=== PATIENT | female | born 1950 | race Caucasian/White ===

== ENCOUNTER → 2020-02-23 09:25 | Outpatient (CLI) | payer MEDICARE ==
[2014-02-23 14:15] VITALS: BMI 21.3
--- NOTE | ~2020-02-23 | EC ---
PATIENT:HANNA PIERCE DATE OF SERVICE: 02/23/20 SEX: F MEDICAL RECORD: [id number] DATE OF : 54 LOCATION:D.FORMERLY [facility] [place] AGE OF PATIENT: 70 ADMISSION DATE: 02/23/20 REFERRING PHYSICIAN: INTERPRETING PHYSICIAN: CHANG MACEDO MD ECHOCARDIOGRAM REPORT ECHO CHARGES 4 ECHO COMPLETE Date: 02/23/20 CLINICAL DIAGNOSIS: HTN/ANGINA/ASSESS EF ECHOCARDIOGRAPHIC MEASUREMENTS (adult normal given) AC root (d.<3.7cm) 2.9 cm LV Septum d (<1.2 cm> 1.0 cm Valve Excursion 1.0 cm LV Septum (systole) 1.1 cm Left Atria (s.<4.0cm> 3.3 cm LVPW d(<1.2cm) 1.0 cm RV (d.<2.3cm) 3.6 cm LVPW (sytole) 1.2 cm LV diastole(<5.6CM) 4.5 cm MV E-F(>70mm/sec) cm LV systole 2.8 cm LVOT Diameter 1.9 cm MV exc.(>10mm) 1.5 cm Est.ejection fraction (50-75%) % DOPPLER: LVIT cm/sec A 103.0cm/sec E 94.0 cm/sec LA cm/sec RVSP 43 mmHg LVOT 106 cm/sec AOP1/2T m/s Asc. Ao 151 cm/sec RVOT 68 cm/sec RA cm/sec PA 125 cm/sec AV Gradient Peak 9.14 mmHg AV Mean 4.68 mmHg AV Area 1.8 cm MV Gradient Peak 4.51 mmHg MV Mean 2.05 mmHg MV Area cm COMMENTS: Sports Journalist: 2 TIARRA SCHRADER Paper Box Cutter: 3 Dr. Lowe TAPE# PACS Pericardial Effusion N DATE OF SERVICE: Adequate 2D, color flow imaging, spectral Doppler, and M-Mode. No LVH. LV internal dimension is normal. Wall motion is normal. EF is greater than or equal to 55%. Aortic valve is tricuspid. No evidence of stenosis by Doppler interrogation. Left atrium is normal at 3.6 cm. Mitral valve shows no prolapse. Mild MR. Right-sided chambers are grossly normal. [id number] TR. ECHOCARDIOGRAM REPORT [id number] HANNA PIERCE TRANSINT:[id number] Voice Confirmation ID: [id number] DOCUMENT ID: [id number] CHANG MACEDO MD CC: [id number] DICTATION DATE: 02/24/20 1331 NURSING HOME MANAGER: 02/24/20 2239 DEP CLI 02/23/20 [place] [id number]
[~2020-02-23 09:25] MED LIST: AZOR 5-40 MG TA1 TAB PO; CARAFATE1 G; CHLORTHALIDONE25 MG PO; DURAGESIC1 PATCH .7 TD; FERROUS SULFAT325 MG PO; FLINTSTONE1 TAB.CHEW PO; HYDRALAZINE HCL50 MG PO; KLONOPIN0.5 MG PO; LEVAQUIN500 MG PO; LEVAQUIN750 MG PO; MUCINEX DM ER1 EAC1 PO; MYSOLINE 50 MG50 MG PO; NEURONTIN600 MG PO; PEPCID20 MG PO; PHENERGAN25 M1 PO; TESSALON PERLE100 MG PO; TRANDATE200 MG PO; TRAZODONE HCL50 MG PO; VALIUM10 MG PO; ZOCOR40 MG PO
== END | disposition home or self-care (01) ==
LOC: D.HCCECHO 09:25
PROVIDERS: ATTEND Internal Medicine Cardiovascular Disease
DX: I20.9 Angina pectoris, unspecified (principal); I10 Essential (primary) hypertension

== ENCOUNTER 2020-03-09 10:55 | Day surgery (SDC) | payer MEDICARE ==
[~2020-03-09] VITALS: Ht 165.1 cm; Wt 46.2 kg
--- NOTE | ~2020-03-09 | HEMODYNAMI ---
PATIENT:HANNA PIERCE MEDICAL RECORD: [id number] : 54 LOCATION:DTRU ADMISSION DATE: 03/09/20 Generatedon:03/09/202013:32 Patient name: HANNA PIERCE Patient #: [id number] SSN: : 1950 Date of study: 03/09/2020 Page: Of Hemodynamic Procedure Report Patient Data Patient Demographics First Name: HANNA Gender: Female Last Name: STAN : 1950 [facility] Initial: A Age: 70 year(s) Patient #: [id number] Race: Unknown Additional ID: [id number] Contact details [address]: [address] [place] [address] State: [place] City: [place] Zip code: [address] Admission Admission Data Admission Date: 03/09/2020 Admission Time: 10:55 Arrival Date: 03/09/2020 Arrival Time: 0:00 Admit Source: Other Insurance Payor: Medicare, Medicaid [facility] #: [id number] Height (in.): 65 BSA: 1.48 (m2) Height (cm.): 165.1 BMI: 16.88 (kg/m2) Weight (lbs.): 101.41 Weight (kg.): 46 Lab Results Lab Result Date: 03/09/2020 Lab Result Time: 0:00 Biochemistry Name Units Result Min Max BUN mg/dl 6 -*(----)-- 7 18 Creatinine mg/dl 0.8 --(-*--)-- 0.6 1.3 eGFR ml/min 75 *-(----)-- 90 120 NONAFRICAN CBC Name Units Result Min Max Hemoglobin g/dl 13.9 --(*---)-- 13.5 17.5 Procedure Procedure Types Cath Procedure Diagnostic Procedure LHC LHC w/Coronaries FFR/IVUS FFR Initial Sedation Charges Moderate Sedation up to 15 minutes Procedure Description Procedure Date Procedure Date: 03/09/2020 Procedure Start Time: 13:11 Procedure End Time: 13:28 Procedure Staff Name Function Moises Mejias MD Performing Physician Brunilda Zepeda RN Nurse Funmi Chin RT Monitor Teodoro White RT Scrub Procedure Data Cath Procedure Fluoroscopy Diagnostic fluoroscopy Total fluoroscopy Time: 2.8 time: 2.8 min min Diagnostic fluoroscopy Total fluoroscopy dose: 254 dose: 254 mGy mGy Contrast Material Contrast Material Type Amount (ml) Isovue 300 71 Entry Location Entry Primary Successful Side Size Upsize Upsize Entry Closure Succes sful Closure Location (Fr) 1 (Fr) 2 (Fr) Remarks Device Remarks Femoral Right 5 Fr 6 Fr artery Short Estimated blood loss: 10 ml Diagnostic catheters Device Type Used For End Catheter Placement MULTIPACK JL 4.0 5Fr Procedure catheter MULTIPACK 3DRC 5Fr Procedure catheter MULTIPACK Pigtail 5 Fr Ventriculography catheter Procedure Complications No complications Procedure Medications Medication Administration Route Dosage Oxygen etCO2 Nasal cannula 2 l/min Lidocaine 2% added to field 20 Heparin Flush Bag added to field 2 bags (1000units/500ml NS) 0.9% NaCl I.V. 100 ml/hr Versed I.V. 1 mg Fentanyl I.V. 50 mcg Versed I.V. 1 mg Fentanyl I.V. 50 mcg Heparin Bolus I.V. 2000 units Fentanyl I.V. 50 mcg Hemodynamics Rest BSA: 1.48 (m2) O2 Consumption: Estimated: 142.64 (ml/min) O2 Consumption indexed : Estimated:96.38 (ml/min/m) Heart Rate: 80 (bpm) Pressure Samples Time Site Value (mmHg) Purpose Heart Use Rate(bpm) 13:15 LV 74/10,11 Snapshot 74 13:15 LV 93/42,15 Snapshot 101 Gradients Valve Time Site Site Mean SEP/DFP Peak To Heart Use 1 2 (mmHg) (sec/min) Peak Rate (mmHg) (bpm) Aortic 13:16 LV AO 82 Snapshots Pre Cath Intra NCS Post Cath Vital Signs Time Heart Resp SPO2 etCO2 NIBP (mmHg) Rhythm Pain Sedation Rate (ipm) (%) (mmHg) Status Level (bpm) 13:05:54 79 17 100 41.8 148/72(123) NSR 0 (11) 10(A) , No pain 13:09:35 80 17 100 36.6 137/78(107) NSR 0 (11) 10(A) , No pain 13:13:19 75 17 99 27.6 114/63(93) NSR 0 (11) 10(A) , No pain 13:17:00 78 17 97 50.7 112/68(93) NSR 0 (11) 10(A) , No pain 13:20:43 79 16 94 45.5 104/58(79) NSR 0 (11) 10(A) , No pain 13:24:25 80 16 94 45.5 104/62(80) NSR 0 (11) 10(A) , No pain 13:28:06 84 16 95 50 103/62(81) NSR 0 (11) 10(A) , No pain Medications Time Medication Route Dose Verified Delivered Reason Notes Effectiveness by by 13:05:30 Oxygen etCO2 2 Moises Brunilda used for Nasal l/min St Stevie Zepeda RN procedure cannula 13:05:37 Lidocaine 2% added 20ml Moises Moises for local to vial [facility] anesthetic field MD HUA 13:05:43 Heparin Flush added 2 Moises Moises used for Bag to bags [facility] procedure (1000units/500ml field MD HUA NS) 13:05:52 0.9% NaCl I.V. 100 Moises Worley Per physician ml/hr St Stevie Zepeda RN, MD 13:11:59 Versed I.V. 1 mg Moises Worley for sedation St Stevie Zepeda RN, MD 13:12:03 Fentanyl I.V. 50 Moises Holcombie for sedation zachary Morrissey RN, MD 13:16:55 Versed I.V. 1 mg Moises Wroley for sedation St Stevie Zepeda RN, MD 13:17:03 Fentanyl I.V. 50 Moises Worley for sedation zachary Morrissey RN, MD 13:17:17 Heparin Bolus I.V. [address] for units [address] Stevie urbina MD 13:20:17 Fentanyl I.V. 50 Moises Worley for sedation zachary Morrissey RN, MD Procedure Log Time Note 13:05:21 Vital chart was started 13:05:22 Arrival Date: 03/09/2020 12:00:00 AM 13:05:23 Admit Source: Other 13:05:30 Oxygen 2 l/min etCO2 Nasal cannula was administered by Brunilda Zepeda RN; used for procedure; Verbal order read back and verified. 13:05:33 Insurance Payor : Medicare, Medicaid 13:05:37 Lidocaine 2% 20ml vial added to field was administered by Moises Mejias MD; for local anesthetic; Verbal order read back and verified. 13:05:43 Heparin Flush Bag (1000units/500ml NS) 2 bags added to field was administered by Moises Mejias MD; used for procedure; Verbal order read back and verified. 13:05:52 0.9% NaCl 100 ml/hr I.V. was administered by Brunilda Zepeda RN; Per physician; Verbal order read back and verified. 13:05:53 Patient Height : 65 inches 13:06:36 Patient Weight : 101.41 lbs 13:07:12 Lab Result : BUN 6 mg/dl 13:07:12 Lab Result : Hemoglobin 13.9 g/dl 13:07:12 Lab Result : eGFR NONAFRICAN 75 ml/min 13:07:12 Lab Result : Creatinine 0.8 mg/dl 13:07:57 Procedure Status Elective Heart Cath (OP). 13:08:00 Brunilda Zepeda RN sent for patient. Start room use. 13:08:16 Time tracking: Regular hours (M-F 7:00 - 5:00) 13:08:20 Plan of Care:Hemodynamics will remain stable., Cardiac rhythm will remain stable., Comfort level will be maintained., Respiratory function will remain adequate., Patient/ family verbilizes understanding of procedure., Procedure tolerated without complication., Recovers from procedure without complications.. 13:08:26 Patient received from Pre/Post Procedure Room to [facility] 2 Alert and oriented. Tansferred to table in Supine position. 13:08:28 Warm blankets applied, and josr hugger turned on for patient comfort. 13:08:28 Correct patient and procedure confirmed by team. 13:08:29 ECG and BP/O2 sat monitors applied to patient. 13:08:30 Baseline sample Acquired. 13:08:36 Rhythm: sinus rhythm 13:08:37 Full Disclosure recording started 13:08:59 H&P Date Dictated: 02/23/2020 Within 30 days and on chart., H&P Addendum completed by physician on day of procedure. (MUST COMPLETE FOR ALL OUTPATIENTS). 13:09:01 Pre-procedure instructions explained to patient. 13:09:04 Family in patients room. 13:09:06 Patient NPO since Midnight. 13:09:26 Is the patient allergic to Iodine/contrast media? No. 13:09:29 Was the patient premedicated? Yes 13:09:30 Is patient on blood thinner?No 13:09:36 Patient diabetic? No. 13:09:47 Snore? No 13:09:49 Sleep apnea? No 13:09:55 Airway obstruction? Yes COPD 13:10:01 Dentures? No ? 13:10:09 Patient pain scale 0/10 ?. 13:10:15 IV patent on arrival in left forearm with 0.9% NaCl at [facility]. 13:10:19 Lab results completed and on chart. 13:10:51 Stress Test: yes; abnormal apical 13:10:56 Right groin area was prepped with chlora-prep and draped in sterile fashion 13:10:56 Alarms reviewed by R. N. 13:10:57 Sharps counted by scrub and verified by R.N. 13:10:58 Physician arrived 13:10:59 --------ALL STOP TIME OUT------ 13:11:07 Final Timeout: patient, procedure, and site verified with staff and physician. All members of the team are in agreement. 13:11:10 Right groin site verified by team. 13:11:14 Fire Safety Assessment: A--An alcohol-based skin anteseptic being used preoperatively., C--Open oxygen or nitrous oxide is being used., D--An ESU, laser, or fiber-optic light is being used. 13:11:17 Physical assessment completed. ASA score P 2 - A patient with mild systemic disease as per Moises Mejias MD. 13:11:20 2) 60-89 Mildly reduced kidney function, and other findings (as for stage 1) point to kidney disease. 13:11:23 Maximum allowable contrast dose (3.7 X eGFR X 0.75)208 ml. 13:11:28 Sedation plan: IV Moderate Sedation Medication:Versed, Fentanyl 13:11:34 Use device set Radial Dx or PCI 13:11:37 Procedure started. 13:11:49 Local anesthetic to right femoral artery with Lidocaine 2% by Moises Mejias MD.INITIAL ACCESS ONLY 13:11:58 A 5 Fr sheath was inserted into the Right Femoral artery 13:11:59 Versed 1 mg I.V. was administered by Brunilda Zepeda RN; for sedation; Verbal order read back and verified. 13:12:02 ACIST Syringe (91974) opened to sterile field. 13:12:02 Medline Cath Pack ([id number]) opened to sterile field. 13:12:03 Fentanyl 50 mcg I.V. was administered by Brunilda Zepeda RN; for sedation; Verbal order read back and verified. 13:12:03 Bag Decanter (2002S) opened to sterile field. 13:12:03 ACIST Hand Control (56932) opened to sterile field. 13:12:04 ACIST Manifold (08724) opened to sterile field. 13:12:04 Tegaderm 4 x 4 (1626W) opened to sterile field. 13:12:08 EMERALD Guide Wire (472-096) opened to sterile field. 13:12:40 DIAGNOSTIC Multipack 5Fr catheter set (LH7304) opened to sterile field. 13:13:41 A MULTIPACK JL 4.0 5Fr catheter was advanced over the wire and used for Procedure. 13:13:46 LCA angiography performed. 13:13:51 Catheter removed. 13:14:10 A MULTIPACK 3DRC 5Fr catheter was advanced over the wire and used for Procedure. 13:14:53 RCA angiography performed. 13:14:58 Catheter removed. 13:15:05 A MULTIPACK Pigtail 5 Fr catheter was advanced over the wire and used for Ventriculography. 13:15:22 LV gram done using CURIEL 13:16:21 LV hemodynamics recorded. 13:16:32 EF : 55 % 13:16:55 Versed 1 mg I.V. was administered by Brunilda Zepeda RN; for sedation; Verbal order read back and verified. 13:16:59 GUIDE 6FR JR 4.0 catheter ([id number]) opened to sterile field. 13:17:00 [place] IVUS Catheter (79698X) opened to sterile field. 13:17:01 INFLATOR Merit BasixCompak (AR0610) opened to sterile field. 13:17:02 SHEATH 6FR Pillow (MFS415) opened to sterile field. 13:17:03 Fentanyl 50 mcg I.V. was administered by Brunilda Zepeda RN; for sedation; Verbal order read back and verified. 13:17:17 Heparin Bolus 2000 units I.V. was administered by Brunilda Zepeda RN; for anticoagulation; Verbal order read back and verified. 13:17:17 Catheter removed. 13:17:19 Proceeding to intervention. 13:18:54 Sheath upsized to a 6 Fr Short. 13:19:01 6 Fr JR4 guide catheter was inserted over the wire 13:19:06 IFR wire advanced. 13:20:17 Fentanyl 50 mcg I.V. was administered by Brunilda Zepeda RN; for sedation; Verbal order read back and verified. 13:20:38 FFR/IFR wire advanced. 13:23:03 Wire advanced across lesion. 13:23:50 mRCA lesion measured at .94 with IFR 13:24:01 Procedure ended.(Physican Out) 13:25:50 Fluoroscopy time 02.80 minutes. 13:26:09 Fluoroscopy dose: 254 mGy 13:26:09 Flurop Dose total: 254 13:26:15 Dose Area Product 40803 mGy/cm. 13:26:19 Contrast amount:Isovue 300 71ml. 13:26:21 Maximum allowable dose exceeded? No. 13:26:23 Insertion/operative site no bleeding no hematoma. 13:26:26 Post-op/insertion site Right Femoral artery dressed using a 4 x 4 and Tegaderm. 13:26:34 Post-procedure physical assessment completed. ASA score P 2 - A patient with mild systemic disease as per Moises Mejias MD. 13:26:37 Post procedure rhythm: unchanged. 13:26:42 Estimated blood loss: 10 ml 13:26:44 Post procedure instruction explained to patient.Patient verbalizes understanding. 13:27:22 Procedure type changed to Cath procedure, Diagnostic procedure, LHC, [facility] w/Coronaries, FFR/IVUS, FFR Initial, Sedation Charges, Moderate Sedation up to 15 minutes 13:27:24 Procedure and supply charges have been captured, reviewed, submitted and are correct. 13:27:49 Procedure Complication : No complications 13:27:52 Vital chart was stopped 13:27:55 [facility] Findings: mild to moderate CAD (<70%) 13:27:58 Operative report dictated upon procedure completion. 13:27:59 See physician's report for complete and final results. 13:28:01 Report given to Pre/Post Procedure Room. 13:28:05 Patient transfered to Pre/Post Procedure Room with Stretcher. 13:28:07 Procedure ended. 13:28:07 Full Disclosure recording stopped 13:28:16 End room use (Document Last) 13:28:41 End room use (Document Last) 13:29:17 End room use (Document Last) 13:29:42 End room use (Document Last) 13:30:10 ACT drawn and resulted at 168 seconds. (normal therapeutic range 180-240 seconds). Device Usage Item Name Manufacture Quantity Catalog Hospital Part Current Minimal L ot# / Number Charge Number Stock Stock Serial# Code ACIST Acist 1 51073 441660 265277 705115 20 Syringe Medical (33048) Systems Inc Medline Medline 1 [id number] 591626 69580 600651 5 Cath Pack ([id number]) Bag Microtek 1 501187 06918 929280 5 Decanter Medical Inc. () ACIST Hand Acist 1 21532 113604 209692 945917 5 Control Medical (58133) Systems Inc ACIST Acist 1 08508 350555 169358 893015 5 Manifold Medical (91343) Systems Inc Tegaderm 4 3M 1 1626W 893968 435290 971065 5 x 4 (1626W) EMERALD Cardinal 1 502-455 312416 690497 775415 5 Guide Wire Health (502-455) DIAGNOSTIC Cardinal 1 PM6117 237050 27191 022052 30 Multipack Health 5Fr catheter set ([id number]) MULTIPACK Cardinal 1 863947 5 JL 4.0 5Fr Health catheter MULTIPACK Cardinal 1 856615 5 3DRC 5Fr Health catheter MULTIPACK Cardinal 1 267972 5 Pigtail 5 Health Fr catheter GUIDE 6FR Medtronic 1 [id number] 791679 17392 483529 1 JR 4.0 catheter (FU3MG84) [place] 1 62820W 170783 406326 573083 8 [place] IVUS Catheter (17944M) INFLATOR Merit 1 PQ7283 779208 288351 458149 15 [place] Medical BasixCompak (KC1970) SHEATH 6FR Terumo 1 PUO580 045467 912706 614621 40 Pillow (YCP531) Signature Audit [place] Stage Time Signature Unsigned Intra-Procedure 03/09/2020 Funmi Chin 1:28:41 PM RT(R) Intra-Procedure 03/09/2020 Brunilda Zepeda RN 1:29:17 PM Intra-Procedure 03/09/[address] 1:29:42 PM Stevie HUA Intra-Procedure 03/09/[address] 1:32:32 PM Stevie HUA Signatures Performing Physician : Signature : Moises Mejias MD Date : Time : Nurse : Brunilda Zepeda RN Signature : Date : Time : Monitor : Funmi Chin Signature : RT Date : Time : [place] [address] [place] [address]
[2020-03-09] MEDS ORDERED: PROZAC40 MG PO (11:11)
[2020-03-09] MEDS ORDERED: COREG 3.1253.125 MG PO (11:13)
[2020-03-09] MEDS ORDERED: SPIRIVA18 MCG INH (11:17)
[2020-03-09 11:21] VITALS: BP 126/58; Ht 165.1 cm; Wt 46.2 kg
[2020-03-09 11:40] LABS: BASOPHILS 0.4 % (0-2); EOSINOPHILS 1.2 % (0-7); HEMATOCRIT 42.2 % (36.0-48.0); HEMOGLOBIN 13.9 g/dL (12-16); IMMATURE GRANULOCYTES 0.2 % (0-5); LYMPHOCYTES 20.5 % (15-50); MCH 30.5 pg (26.0-34.0); MCHC 32.9 g/dL (31.0-37.0); MCV 92.7 fL (80.0-100.0); MEAN PLATELET VOLUME 10.6 fL (7.4-10.4); MONOCYTES 7.2 % (2-11); NEUTROPHILS 70.5 % (40-80); RBC 4.55 10x6/uL (4.00-5.40); RDW 13.7 % (11.5-14.5); WBC 9.2 10x3/uL (4.8-10.8)
[2020-03-09] MEDS ORDERED: OMEPRAZOLE40 MG PO (11:47)
[2020-03-09 11:54] LABS: PLATELET COUNT 339 10x3/uL (130-400)
[2020-03-09 12:15] LABS: ALT (SGPT) 12 U/L (10-68); CALC OSMOLALITY 261 mosm/kg (275-300); CALCIUM 8.7 mg/dL (8.5-10.1); CARBON DIOXIDE 34.3 mmol/L (21.0-32.0); CHLORIDE - SERUM 97 mmol/L (98-107); CHOL - HDL RATIO 3.9 ratio (2.3-4.1); CHOLESTEROL, TOTAL 185 mg/dL (0-200); CREATININE - SERUM 0.8 mg/dL (0.6-1.3); HDL CHOLESTEROL 48 mg/dL (32-96); LDL CHOLESTEROL 110 mg/dL (0-100); LDL-HDL RATIO 2.3 ratio (1.5-3.5); POTASSIUM - SERUM 3.9 mmol/L (3.5-5.1); SODIUM 132 mmol/L (136-145); TRIGLYCERIDE 136 mg/dL (30-200); UREA NITROGEN 6 mg/dL (7-18); eGFR NON AFRICAN AMERICAN 75 mL/min (90-120)
[2020-03-09 12:16] LABS: GLUCOSE 79 mg/dL (74-106)
--- NOTE | 2020-03-09 13:45 | NUR ---
PT RECEIVED VIA STRETCHER FOR RECOVERY. PT AWAKE, DROWSY, DENIES PAIN OR DISCOMFORT. IV PATENT INFUSING VIA ORDERS TO L ARM. PT PLACED ON CARDIAC MONITORS AND O2 VIA NC AT 2L. HR NSR RATE 88, BP 125/68, RR 15, SAT 96. R GROIN SOFT, DRESSING CDI NO S/S HEMATOMA OR BLEEDING NOTED. LEG PINK AND WARM, PEDAL PULSES PALPABLE. PT INSTRUCTED TO KEEP HEAD ON PILLOW AND LEG STRAIGHT, SHE VERBALIZED UNDERSTANDING. CALL LIGHT IN REACH, DAUGHTER AT BS.
--- NOTE | 2020-03-09 14:15 | NUR ---
R GROIN SOFT, DRESSING CDI NO S/S HEMATOMA OR BLEEDING NOTED. LEG PINK AND WARM, PEDAL PULSES PALPABLE. CALL LIGHT IN REACH, VSS AT PRESENT.
--- NOTE | 2020-03-09 15:00 | NUR ---
PT RESTING COMFORTABLY, TOLERATING PO FLUIDS. SANDWICH TRAY SERVED. GROIN SOFT, DRESSING REMAINS CDI NO S/S HEMATOMA OR BLEEDING NOTED. PT DENIES PAIN OR NEEDS AT THIS TIME. CALL LIGHT IN REACH.
--- NOTE | 2020-03-09 15:20 | NUR ---
DISCHARGE INSTRUCTIONS REVIEWED W PT AND DAUGHTER, BOTH VERBALIZED UNDERSTANDING. DR MACEDO AT , PT HAD QUESTIONS REGARDING HER MEDICATIONS THAT HE ANSWERED. NO NEW ORDERS OR CHANGES GIVEN.
--- NOTE | 2020-03-09 15:22 | NUR ---
IV REMOVED W CATH INTACT, MONITORS AND O2 REMOVED. PT AMBULATED TO BR W ASSIST FROM DAUGHTER.
--- NOTE | 2020-03-09 15:49 | NUR ---
PT DISCHARGED VIA WC TO DAUGHTER IN PRIVATE VEHICLE. PT HAD ALL BELONGINGS AND DISCHARGE PAPERWORK IN HAND
--- NOTE | 2020-03-10 07:58 | OP ---
PATIENT NAME: HANNA PIERCE MEDICAL RECORD: [id number] :54 LOCATION:D.CAT ADMISSION DATE: SURGEON: CHANG MACEDO MD DATE OF OPERATION: 03/09/2020 PROCEDURE: Left heart catheterization, selective coronary angiography, right femoral artery approach, IFR wire. CATHETERS: A 5-[place]ots[place] sheath, 5/4 left and right Stormy, 5/4 pig. The procedure was well tolerated. The patient returned to the charles. Sheath was removed. ExoSeal device was placed. FINDINGS: Left ventriculography in a 30-degree CURIEL view shows normal wall motion and normal function. LEFT MAIN: Left main is free of disease. LAD: LAD is free of disease in the diagonal system. CIRCUMFLEX: Free of disease in the marginal system. RIGHT CORONARY ARTERY: Questionable restenosis in mid portion; however, IFR wire is normal at 0.94. IMPRESSION: Normal LV systolic function, normal coronary anatomy both by visualization and IFR wire. TRANSINT:[id number] Voice Confirmation ID: [id number] DOCUMENT ID: [id number] CHANG MACEDO MD at 0758 CC: [id number] DICTATION DATE: 03/09/20 1331 BULK SUGAR HANDLER: 03/09/20 2241 [facility] 03/09/20 [place] [id number] [facility] [place] [address]
== END 2020-03-09 15:40 | disposition home or self-care (01) ==
LOC: D.CATH 10:55
PROVIDERS: ATTEND Internal Medicine Interventional Cardiology
DX: R94.39 Abnormal result of other cardiovascular function study (principal); I20.9 Angina pectoris, unspecified; J44.9 Chronic obstructive pulmonary disease, unspecified; I10 Essential (primary) hypertension

== ENCOUNTER 2020-09-13 21:38 | Inpatient (IN) | payer MEDICARE ==
[2020-09-13] VITALS (10 sets, daily range): BP systolic 101–122; BP diastolic 58–75
[~2020-09-13] VITALS: Ht 165.1 cm; Wt 47.1 kg
[~2020-09-13 21:38] MED LIST changes: +AZITHROMYCIN500 MG PO; +BUPROPION XL150 MG PO; +COREG 3.1253.125 MG PO; +DALIRESP250 MCG PO; +FLORAJEN3 CAPS460 MG PO; +HYDROCODON-ACE1 EAC7 PO; +K-DUR20 MEQ PO; +LASIX20 MG PO; +MELATONIN 3 MG1 TAB PO; +MUCINEX600 MG PO; +OMEPRAZOLE40 MG PO; +OMNICEF300 MG PO; +PREDNISONE10 MG PO; +PREDNISONE20 MG PO; +PROZAC40 MG PO; +REMERON15 MG PO; +SINGULAIR10 MG PO; +SPIRIVA18 MCG INH; +VITAMIN C PO; +VITAMIN D1000 UNI2 PO; +ZINC-220220 MG PO; +ZITHROMAX250 MG PO; +ZOFRAN ODT4 MG/UDTAB PO
[2020-09-13 22:50] LABS: BILIRUBIN NEGATIVE (NEGATIVE); KETONE NEGATIVE (NEGATIVE); NITRITE NEGATIVE (NEGATIVE); UROBILINOGEN NORMAL mg/dL (< 2)
[2020-09-13 22:56] LABS: UDS - AMPHET NEGATIVE QUAL (NEGATIVE); UDS - BARB NEGATIVE QUAL (NEGATIVE); UDS - BENZO POSITIVE QUAL (NEGATIVE); UDS - COCAINE NEGATIVE QUAL (NEGATIVE); UDS - OPIATE POSITIVE QUAL (NEGATIVE); UDS - PCP NEGATIVE QUAL (NEGATIVE); UDS - THC NEGATIVE QUAL (NEGATIVE)
[2020-09-13 23:33] LABS: HEMATOCRIT 42.6 % (36.0-48.0); HEMOGLOBIN 13.2 g/dL (12-16); MCH 29.4 pg (26.0-34.0); MCV 94.9 fL (80.0-100.0); MEAN PLATELET VOLUME 11.7 fL (7.4-10.4); PLATELET COUNT 200 10x3/uL (130-400); RBC 4.49 10x6/uL (4.00-5.40); RDW 14.3 % (11.5-14.5)
[2020-09-14] VITALS (56 sets, daily range): BP systolic 71–129; BP diastolic 7–96; Ht 165.1 cm; Wt 47.1 kg
[2020-09-14 00:03] LABS: ALBUMIN 2.5 g/dL (3.4-5.0); BILIRUBIN - TOTAL 1.48 mg/dL (0.2-1.3); CARBON DIOXIDE 30.1 mmol/L (21.0-32.0); CREATININE - SERUM 1.4 mg/dL (0.6-1.3); MAGNESIUM - SERUM 2.2 mg/dL (1.8-2.4); PROTEIN - SERUM 5.9 g/dL (6.4-8.2); THYROID STIMULATING HORMONE 0.83 uIU/mL (0.36-3.74)
[2020-09-14 00:05] LABS: LYMPHOCYTES 6 % (15-50); MONOCYTES 3 % (2-11); NEUTROPHILS 91 % (40-80)
[2020-09-14 00:06] LABS: PLATELET ESTIMATE NORMAL
--- NOTE | 2020-09-14 00:30 | NUR ---
PT ARRIVED FROM ED TO ICU 5. PT ON PORTABLE VENT. PT RESTLESS AND BILATERAL WRIST RESTRAINTS ON PT UPON ARRIVAL TO UNIT. SEE FULL HEAD TO TOE ASSESSMENT IN FLOWSHEETS. 20G PIV TO RIGHT UPPER FOREARM NOTED TO BE INFILTRATED, PROPOFOL INFUSING. PIV PULLED OUT, PRESSURE APPLIED AND SITE TAPED. 186 PIV IN RIGHT EJ NOTED TO PATENT WITH BLOOD RETURN. PROPOFOL INFUSING AT 30 MCG/KG/MIN AND NS RUNNING AT 75ML/HR UPON ADMIT TO ICU. HEART RATE NOTED TO BE SINUS TACHY TO RAPID AFIB 120S-150S. PT AFEBRILE.
[2020-09-14 00:46] LABS: ANION GAP 0.3 mmol/L (8-16)
[2020-09-14 00:49] LABS: POTASSIUM - SERUM 2.4 mmol/L (3.5-5.1)
--- NOTE | 2020-09-14 01:30 | NUR ---
DR. ETIENNE PAGED AT [phone]. RETURNED PAGE AT 1353. MD NOTIFIED OF CONSULT FOR VENT MANAGEMENT. BRIEF ADMIT HISTORY PROVIDED. MD UPDATED ON PT'S VITALS FOLLOWED - HEART RATE TACHY BETWEEN 120S-150S GOING IN AND OUT OF SINUS TACH AND RAPID AFIB. RHYTHM ON MONITOR APPEARS TO HAVE ST ELEVATION. MD VERBALIZED ACKNOWLEDGEMENT. MD ALSO INFORMED OF SBP IN 70S-80S. ABG RESULTS READ TO MD WELL. MD VERBALIZED ACKNOWLEDGEMENT. MD UPDATED ON CRITICAL LAB RESULTS FOLLOWED K+ 2.4 AND CHLORIDE 122. MD VERBALIZED ACKNOWLEDGEMENT. ORDERS RECEIVED: START FENTANYL AT 25 MCG/HR START LEVOPHED TO KEEP MAP >65 GET TROPONIN LEVEL NOW AND THEN ANOTHER TROPONIN LEVEL WITH AM LABS. DO NOT CALL CRITICAL TROPONIN UNLESS LEVEL IS GREATER THAN [address] PL[address] ELECTROLYTE PROTOCOL- MD WOULD LIKE PO POTASSIUM DOWN OGT.
--- NOTE | 2020-09-14 02:24 | NUR ---
SPOKE WITH SHIRA WITH PHARMACY AT ([phone]). INFORMED PHARMACIST OF NEED TO VERIFY MEDS. PHARMACIST INFORMED RN THEY ARE CURRENTLY VERIFYING.
--- NOTE | 2020-09-14 05:36 | NUR ---
LAB AT BEDSIDE DRAWING AM LABS, TROPONIN LEVEL AND BLOOD CULTURES
[2020-09-14 06:37] LABS: BASOPHILS 0 % (0-2); EOSINOPHILS 0 % (0-7); HEMATOCRIT 45.4 % (36.0-48.0); HEMOGLOBIN 14.2 g/dL (12-16); IMMATURE GRANULOCYTES 0.4 % (0-5); LYMPHOCYTE ABS# 0.74 10x3/uL (1.18-3.74); LYMPHOCYTES 2.9 % (15-50); MCH 28.3 pg (26.0-34.0); MCHC 31.3 g/dL (31.0-37.0); MCV 90.6 fL (80.0-100.0); MEAN PLATELET VOLUME 11.9 fL (7.4-10.4); MONOCYTES 4.3 % (2-11); NEUTROPHIL ABS# 23.19 10x3/uL (1.56-6.13); NEUTROPHILS 92.4 % (40-80); PLATELET COUNT 257 10x3/uL (130-400); RBC 5.01 10x6/uL (4.00-5.40); RDW 15.1 % (11.5-14.5); WBC 25.1 10x3/uL (4.8-10.8)
--- NOTE | 2020-09-14 08:00 | NUR ---
DR. ETIENNE ROUNDS TO MEET PT. COVID SWAB ORDER OBTAINED.
[2020-09-14 08:47] LABS: ANION GAP 16.2 mmol/L (8-16); CALCIUM 8.8 mg/dL (8.5-10.1); CARBON DIOXIDE 26.2 mmol/L (21.0-32.0); CREATININE - SERUM 1.8 mg/dL (0.6-1.3)
[2020-09-14 08:48] LABS: POTASSIUM - SERUM 6.4 mmol/L (3.5-5.1); TROPONIN-I 1.903 ng/mL (0.000-0.060)
--- NOTE | 2020-09-14 08:55 | NUR ---
ATIF, DAUGHTER CALLED AND GIVEN UPDATE. REPORTS THAT PT HAS WORN OUT WELCOME AT HER SISTER'S AND DAUGHTER'S HOUSE. REPORTS THAT THEY FOUND ALL OF HER WEEKS WORTH VALIUM AND OPIATES GONE WHEN THEY FOUND HER DOWN. REQUESTS CM FOR PLACEMENT.
--- NOTE | 2020-09-14 09:15 | NUR ---
DR. ETIENNE HERE FOR ROUNDS. REPORTED CRITICAL POTASSIUM. ORDERS RECEIVED.
[2020-09-14 09:33] LABS: SARS-CoV-2 ANTIGEN NEGATIVE- SARS-COV-2 (NEGATIVE)
--- NOTE | 2020-09-14 09:46 | NUR ---
LAB REPORTS COVID NEGATIVE, BUT DOUBTS THE INTEGRITY OF THE TEST BECAUSE I PLACED THE SWAB IN SEND OUT CONTAINER AND NOT IN PACKET. WILL REPEAT TEST.
--- NOTE | 2020-09-14 11:10 | NUR ---
DR. GHOSH CONSULTED FOR RENAL. ORDERS RECEIVED.
[2020-09-14 11:53] LABS: SARS-CoV-2 ANTIGEN NEGATIVE- SARS-COV-2 (NEGATIVE)
--- NOTE | 2020-09-14 15:06 | NUR ---
UPDATE GIVEN TO DAUGHTER, INCLUDING RENAL CONSULT.
[2020-09-14 15:59] LABS: ANION GAP 15.1 mmol/L (8-16); CALCIUM 8.7 mg/dL (8.5-10.1)
[2020-09-14 16:03] LABS: POTASSIUM - SERUM 6.1 mmol/L (3.5-5.1)
--- NOTE | 2020-09-14 16:30 | NUR ---
CALLED CRITICAL POTASSIUM TO DR. GHOSH. HE SAYS HE WILL ROUND ON HER SOON.
--- NOTE | 2020-09-14 16:34 | NUR ---
PT IN A FIB 150S. DR. JAIMIE BUSH.
--- NOTE | 2020-09-14 16:54 | NUR ---
DR. AUGIE CASTRO. NOTES THAT SHE IS IN AFIB 150 AND THAT HIGH K MAY HAVE SOMETHING TO DO WITH IT. ORDERS RECEIVED TO TX HYPERKALEMIA.
--- NOTE | 2020-09-14 16:55 | NUR ---
ALSO RECEIVED ORDERS FOR LOW UOP FROM DR. GHOSH.
[2020-09-15] VITALS (23 sets, daily range): BP systolic 85–105; BP diastolic 61–84
[2020-09-15 05:05] LABS: ANION GAP 14.6 mmol/L (8-16); CALCIUM 8.1 mg/dL (8.5-10.1); CARBON DIOXIDE 23.6 mmol/L (21.0-32.0); CREATININE - SERUM 1.9 mg/dL (0.6-1.3); POTASSIUM - SERUM 5.2 mmol/L (3.5-5.1)
--- NOTE | 2020-09-15 10:04 | NUR ---
P/S TRIAL STARTED AT 0950 10/5 40%. PT NEEDED CONSTANT COACHING AND COULD NOT STAY AWAKE. RR INCREASED TO 30'S. TRIAL WAS STOPPED AND PT PLACED BACK ON RATE AC/VC. TRIAL LASTED 8 MINS.
--- NOTE | 2020-09-15 10:19 | NUR ---
Nutrition consult/follow-up: Discussed during IDT team rounds. Per Dr. Moran, start TF today via OGT Labs reviewed; K was low and rider given; now 5.2 and trending down Wt: 90# RDN will order Pulmocare to start @ 20 ml/hr with gradual increase to goal rate of 35 ml/hr; 20 ml H2O flush q hour. RDN follow-up: 09/16/20
--- NOTE | 2020-09-15 17:22 | NUR ---
SPOKE WITH DR ETIENNE VIA PHONE FOR CARDIAC CONSULT. PT STILL IN UNCONTROLLED AFIB, NARROW PULSE PRESSURE AND MILDLY NOTICABLE MUFFLED HEART TONES. SPOKE WITH SUMAYA VIA PHONE UPDATED ON CARDIAC CONCERNS. ORDERS REC'D AND INTIATED. DR BRIGGS TEAM TO SEE PATIENT IN AM.
--- NOTE | 2020-09-15 19:26 | NUR ---
RECEIVED BEDSIDE REPORT. ROUNDING COMPLETE. PATIENT RESTING COMFORTABLY. PATIENT REMAINS ON MECHANICAL VENTILATION. NO S/S OF DISTRESS. SCD FOR DVT PREVENTION ON. WILL CPOC.
[2020-09-16] VITALS (40 sets, daily range): BP systolic 84–119; BP diastolic 56–663
--- NOTE | 2020-09-16 13:00 | NUR ---
PERIPHERAL IV X2 IN RUE AND PERIPHERAL IV X1 IN LUE INFILITRATED UPON ASSESSMENT. INFUSION STOPPED AND IV X3 D/C WITH CATHETER INTACT. DR ETIENNE NOTIFIED AND ORDER GIVEN FOR PICC LINE PLACEMENT. RESOURCES UNAVAILABLE FOR PICC LINE PLACEMENT. DR ETIENNE NOTIFIED AND CENTRAL LINE ORDERED. OR CONSULTED FOR CENTRAL LINE AND DR GHOSH PRESENT IN UNIT AND SUGGESTED TRIALYSIS PLACEMENT R/T POSS DIALYSIS. CALLED DAUGHTER FOR CONSENT.
--- NOTE | 2020-09-16 18:45 | NUR ---
RECEIVED BEDSIDE REPORT. ROUNDING COMPLETE. PATIENT IS RESTING COMFORTABLY IN BED. RESPIRATIONS ARE EVEN AND UNLABORED. PATIENT REMAINS ON 6L NC. NO S/S OF DISTRESS. NO C/O PAIN. CALL LIGHT WITHIN REACH. WILL CPOC.
--- NOTE | 2020-09-16 19:59 | NUR ---
FAMILY CALLED AND WAS UPDATED ON PATIENT CURRENT CONDITION
[2020-09-17] VITALS (18 sets, daily range): BP systolic 94–121; BP diastolic 59–77
[2020-09-17 04:15] LABS: BASOPHILS 0 % (0-2); EOSINOPHILS 0 % (0-7); HEMATOCRIT 35.3 % (36.0-48.0); HEMOGLOBIN 11.1 g/dL (12-16); IMMATURE GRANULOCYTES 0.2 % (0-5); LYMPHOCYTE ABS# 0.36 10x3/uL (1.18-3.74); LYMPHOCYTES 2.6 % (15-50); MCH 28.2 pg (26.0-34.0); MCHC 31.4 g/dL (31.0-37.0); MCV 89.6 fL (80.0-100.0); MEAN PLATELET VOLUME 11.7 fL (7.4-10.4); MONOCYTES 4.6 % (2-11); NEUTROPHIL ABS# 12.78 10x3/uL (1.56-6.13); NEUTROPHILS 92.6 % (40-80); RBC 3.94 10x6/uL (4.00-5.40); RDW 15.8 % (11.5-14.5); WBC 13.8 10x3/uL (4.8-10.8)
[2020-09-17 04:19] LABS: PLATELET COUNT 108 10x3/uL (130-400)
[2020-09-17 04:29] LABS: CALCIUM 7.8 mg/dL (8.5-10.1); CARBON DIOXIDE 25.2 mmol/L (21.0-32.0)
[2020-09-17 04:38] LABS: CREATININE - SERUM 1.1 mg/dL (0.6-1.3); POTASSIUM - SERUM 4.2 mmol/L (3.5-5.1)
--- NOTE | 2020-09-17 07:30 | NUR ---
REPORT RECIEVED. CARE OF PT ASSUMED. SEE FLOWSHEET FOR ASSESSMENT FINDINGS.
--- NOTE | 2020-09-17 07:32 | NUR ---
Nutrition follow-up: Pt extubated 09/16/20; continues NPO Possible dialysis Labs reviewed Wt: 103# Recommendations: Speech evaluation and diet started if medically feasible If not, recommend NGT vs PEG tube placement and nutrition support restarted due to pts malnutition. RDN follow-up: 09/20/20
--- NOTE | 2020-09-17 16:27 | NUR ---
ROOM RECIEVED 2111. ASSISTING WITH MEAL AT THIS TIME.
--- NOTE | 2020-09-17 16:40 | NUR ---
REPORT CALLED TO DARA. WILL TRANSPORT PATIENT OVER WHEN FINISHED EATING
--- NOTE | 2020-09-17 17:45 | NUR ---
PT ARRIVED TO UNIT FROM ICU VIA BED. PT SETTLED INTO ROOM. NO NEEDS AT THIS TIME.
--- NOTE | 2020-09-17 18:12 | NUR ---
TRANSFERRED PT OVER TO 2111 VIA BED. CALLED AND UPDATED DAUGHTER, PATRICK. VERBALIZED UNDERSTANDING.
--- NOTE | 2020-09-17 20:00 | NUR ---
INITIAL ROUNDS AND ASSESSMENT COMPLETED. PT WITH O2 @ 2L/NC, SHALLOW RESPIRATIONS. CALLING OUT AT TIMES, BUT WHEN SPOKEN TO SHE IS CONFUSED AND RAMBLING. RIGHT IJ TRIALYSIS WITH NS @ 50ML/HR. PT NOW ON PUREED DIET WITH NECTAR THICK LIQUIDS. CALL LIGHT IN REACH.
[2020-09-18 04:00] VITALS: BP 141/79
--- NOTE | 2020-09-18 04:42 | NUR ---
CALL TO NEPHROLOGY TO REPORT DECREASED OUTPUT, INCREASED COARSE/RHONCHI SOUNDS. RESPIRATORY RATE 26 WITH DYSPNEA/AUDIBLE CONGESTION WITH NO COUGHING. ORDERS RECIEVED FROM HANNA GILL APN. IV LASIX, CXR, DECREASE IVF TO 30ML/HR.
--- NOTE | 2020-09-18 05:37 | NUR ---
LASIX ADMINISTERED AND ALREADY PT IS PUTTING OUT PALE URINE. IVF NOW INFUSING AT 30ML/HR.
[2020-09-18 07:45] VITALS: BP 136/74
[2020-09-18 10:11] LABS: BASOPHILS 0 % (0-2); EOSINOPHILS 0 % (0-7); HEMATOCRIT 38.9 % (36.0-48.0); HEMOGLOBIN 12.2 g/dL (12-16); IMMATURE GRANULOCYTES 0.5 % (0-5); LYMPHOCYTE ABS# 0.85 10x3/uL (1.18-3.74); LYMPHOCYTES 6.6 % (15-50); MCH 28.4 pg (26.0-34.0); MCHC 31.4 g/dL (31.0-37.0); MCV 90.5 fL (80.0-100.0); MEAN PLATELET VOLUME 11.2 fL (7.4-10.4); NEUTROPHIL ABS# 11.67 10x3/uL (1.56-6.13); NEUTROPHILS 89.9 % (40-80); PLATELET COUNT 123 10x3/uL (130-400); RDW 15.8 % (11.5-14.5)
[2020-09-18 10:30] LABS: ANION GAP 12.5 mmol/L (8-16); CALCIUM 8.7 mg/dL (8.5-10.1); CARBON DIOXIDE 26.4 mmol/L (21.0-32.0); CREATININE - SERUM 1.1 mg/dL (0.6-1.3); POTASSIUM - SERUM 3.9 mmol/L (3.5-5.1)
[2020-09-18 11:00] VITALS: BP 126/77
[2020-09-18 15:00] VITALS: BP 123/71
--- NOTE | 2020-09-18 17:45 | NUR ---
USING STERILE TECHNIQUE AFTER WASHING HANDS WITH SOAP/WATER CHANGED RT. IJ CL DRESSING, MATILDE WELL, THOUGH DIFFICULT TO KEEP PT HEAD TURNED TO THE LEFT.
--- NOTE | 2020-09-18 19:41 | NUR ---
RECEIVED REPORT, WILL ASSUME CARE OF PT, ASKING TO GO TO BATHROOM, PLACED O BED RAMIREZ, FAMILY IN ROOM, BED IS LOW, SRX2, CALL LIGHT IN REACH, WILL CONTINUE PLAN OF CARE
[2020-09-18 21:54] VITALS: BP 148/74
[2020-09-19 01:00] VITALS: BP 125/70
[2020-09-19 04:34] VITALS: BP 130/74
--- NOTE | 2020-09-19 04:55 | NUR ---
I have reviewed this patient and I concur with the Shift Assessment completed by the Licensed Practical Nurse today this shift.
[2020-09-19 05:05] LABS: BASOPHILS 0.1 % (0-2); EOSINOPHILS 0 % (0-7); HEMOGLOBIN 11.3 g/dL (12-16); IMMATURE GRANULOCYTES 0.2 % (0-5); LYMPHOCYTE ABS# 0.32 10x3/uL (1.18-3.74); LYMPHOCYTES 2.9 % (15-50); MCHC 31.4 g/dL (31.0-37.0); MCV 89.3 fL (80.0-100.0); MEAN PLATELET VOLUME 10.2 fL (7.4-10.4); MONOCYTES 6.2 % (2-11); NEUTROPHILS 90.6 % (40-80); PLATELET COUNT 116 10x3/uL (130-400); RBC 4.03 10x6/uL (4.00-5.40); RDW 15.5 % (11.5-14.5); WBC 10.9 10x3/uL (4.8-10.8)
[2020-09-19 05:33] LABS: ALBUMIN 2.2 g/dL (3.4-5.0); BILIRUBIN - TOTAL 0.39 mg/dL (0.2-1.3); CALCIUM 8.3 mg/dL (8.5-10.1); CARBON DIOXIDE 32.3 mmol/L (21.0-32.0)
[2020-09-19 05:34] LABS: POTASSIUM - SERUM 3.3 mmol/L (3.5-5.1)
--- NOTE | 2020-09-19 07:20 | NUR ---
RECIEVE REPORT. RESTING IN BED WITH EYES CLOSED. SINUS RYTHM 67 ON TELEMETRY. CARR DRAINING BY GRAVITY. NO SIGNS OF DISTRESS. CONTINUE PLAN OF CARE AND SAFETY PRECAUTIONS.
[2020-09-19 12:28] VITALS: BP 134/75
[2020-09-19 16:45] VITALS: BP 128/67
[2020-09-19 19:00] VITALS: BP 120/61
--- NOTE | 2020-09-19 20:08 | NUR ---
INITIAL ROUNDS AND ASSESSMENT COMPLETED. PT RESTING IN BED, BUT IS ALERT AND TALKATIVE. SHE IS TELLING NURSE THAT SHE GETS TO HOME TOMORROW. RIGHT IJ TRIALYSIS WITH D5W @ 30ML/HR AND AMIODARONE AT 17ML/HR INFUSING. CARR PATENT TO BEDSIDE DRAIN BAG. O2 @ 2L/NC WITH NONLABORED RESPIRATIONS. SR PER TELEMETRY. STILL ADHERING TO PUREED DIET AND NECTAR THICKENED LIQUIDS BASED ON SWALLOW EVAL. PT CLEAN/DRY AND RESTING COMFORTABLY. CALL LIGHT IN REACH.
[2020-09-20] VITALS (7 sets, daily range): BP systolic 114–132; BP diastolic 56–73
--- NOTE | 2020-09-20 03:14 | NUR ---
ROUNDING ON PATIENT. SHE WAS TURNED SIDEWAYS IN BED, LIQUID DIARRHEA ALL OVER THE BED, RAILS, FLOOR, PATIENT'S ENTIRE BODY. COMPLETE BED BATH AND LINEN CHANGE PROVIDED.
[2020-09-20 05:56] LABS: BASOPHILS 0.1 % (0-2); EOSINOPHILS 0.2 % (0-7); HEMATOCRIT 37.1 % (36.0-48.0); HEMOGLOBIN 11.9 g/dL (12-16); IMMATURE GRANULOCYTES 0.7 % (0-5); LYMPHOCYTE ABS# 1.18 10x3/uL (1.18-3.74); LYMPHOCYTES 7.2 % (15-50); MCH 28.3 pg (26.0-34.0); MCHC 32.1 g/dL (31.0-37.0); MCV 88.1 fL (80.0-100.0); MEAN PLATELET VOLUME 10.7 fL (7.4-10.4); MONOCYTES 10.5 % (2-11); NEUTROPHIL ABS# 13.31 10x3/uL (1.56-6.13); NEUTROPHILS 81.3 % (40-80); PLATELET COUNT 138 10x3/uL (130-400); RBC 4.21 10x6/uL (4.00-5.40); RDW 15.4 % (11.5-14.5)
[2020-09-20 06:28] LABS: WBC 16.4 10x3/uL (4.8-10.8)
[2020-09-20 08:00] LABS: ALKALINE PHOSPHATASE 66 U/L (30-120); CALCIUM 7.8 mg/dL (8.5-10.1); CARBON DIOXIDE 33.6 mmol/L (21.0-32.0); CHLORIDE - SERUM 108 mmol/L (98-107); CREATININE - SERUM 0.8 mg/dL (0.6-1.3); GLUCOSE 98 mg/dL (74-106); PROTEIN - SERUM 4.5 g/dL (6.4-8.2); SODIUM 143 mmol/L (136-145); eGFR NON AFRICAN AMERICAN 75 mL/min (90-120)
[2020-09-20 08:10] LABS: ALT (SGPT) 60 U/L (10-68); CALC OSMOLALITY 286 mosm/kg (275-300); UREA NITROGEN 19 mg/dL (7-18)
[2020-09-20 08:11] LABS: POTASSIUM - SERUM 2.3 mmol/L (3.5-5.1)
--- NOTE | 2020-09-20 08:32 | NUR ---
AM MEDS GIVEN AT THIS TIME. PT LYING IN BED WITH HOB RAISED, PT DRINKING COFFEE, AWAKE AND ALERT. CONFUSION NOTED. PT TOOK MEDICATIONS WITHOUT DIFFICULTY. IV INFUSING WITHOUT COMPLICATIONS. NO NEEDS VOICED. CLWR.
--- NOTE | 2020-09-20 09:07 | NUR ---
PT ASSISTED TO AND FROM BSC AT THIS TIME. LINENS CHANGED. PT TOLERATED WELL. NO FURTHER NEEDS VOICED. CLWR.
--- NOTE | 2020-09-20 12:24 | NUR ---
Nutrition Reassessment/Follow-up: Somewhat confused. Observed small amt of breakfast tray eaten this AM. Denies N/V, difficulty swallowing. ST following; currently on puree with nectar thick liquids. Noted pt with diarrhea overnight. Pt reports that she is lactose intolerant. Diet: Regular, Puree, [place] Thick Liquids PO intake: 31% avg x 6 meals (09/18-09/19) Wt: 103.6# (09/17); 80.4# (09/14)BMI: 17.2 Labs noted: K+ 2.3, Ca 7.8, Alb 2.0 Meds noted: Prednisone, Lasix, Protonix, Colace, D5 1/2NS KCl @ 50, D5W @ 30, electrolyte protocol Est needs: 1296-2928 kcal/day (30-35 kcal/kg actual BW) 50-55 g protein/day (1-1.2 g/kg actual BW) 0862-0029 mL H2O/day (1 mL/kcal) or per MD *Inadequate energy intake R/T appetite, AMS AEB poor PO intake reported. -Encourage PO intake and honor food preferences within diet restrictions; pt's lactose intolerance communicated to kitchen. -Offer nutrition supplements. -Pt may benefit from an appetite stimulant. -Monitor wt. -RD will follow up within 2-3 days.
--- NOTE | 2020-09-20 13:11 | NUR ---
PT LYING IN BED WITH HOB RAISED, RR EVEN NON LABORED. PT EYES CLOSED AND APPEARS TO BE RESTING COMFORTABLY. CLWR.
--- NOTE | 2020-09-20 16:49 | NUR ---
PT SITTING UP IN BED WATCHING TV, PT DAUGHTER VISITING AT BEDSIDE. RR EVEN NON LABORED, O2 IN PLACE. NO NEEDS VOICED. CLWR.
--- NOTE | 2020-09-20 17:20 | NUR ---
OT NOTE: PT REQUIRED MOD A FOR BED MOBILITY TASKS. PT REQUIRED MIN A FOR SITTING AT EOB. PT COMPLETED FACE WITH SETUP. PT REQUIRED MIN A FOR HAND HYGIENE. PT REQUIRED MAX A FOR DEMETRIUS SOCKS. [phone] THANK YOU,REHANA STEWART
--- NOTE | 2020-09-20 17:52 | MORECARE ---
CASE MANAGEMENT DISCHARGE SUMMARY PATIENT: HANNA PIERCE UNIT: [id number] ADM DATE: 09/13/20 AGE: 70 : 52 SEX: F ROOM/BED: D.1916 AUTHOR: RYLIEDOC PHYSICIAN: REFERRING PHYSICIAN: NORA VALENCIA MD DATE OF SERVICE: 09/20/20 Discharge Plan Patient Name: HANNA PIERCE Facility: [facility]:[place] : 1950 Planned Disposition: Home Anticipated Discharge Date: Discharge Date: Expected LOS: Initial Reviewer: [email or web address] Initial Review Date: 09/20/2020 Generated: 09/20/20 6:51 pm Comments DCP- Discharge Planning Updated by [email or web address]: Kassy Sorto on 09/20/20 3:[address] Patient Name: HANNA PIERCE Admission Status: ER Accout number: [id number] Admission Date: 09-13-2020 : 1950 Admission Diagnosis:OTHER ABNORMALITIES OF BREATHING Attending: NORA VALENCIA Current LOS: 7 Anticipated DC Date: Planned Disposition: Home Primary Insurance: [facility] [employer] Discharge Planning Comments: Was called into the hallway by patient's daughter, Robert Shine. Robert states her mother lives alone and does not take care of herself. States she doesn't bathe, wear her oxygen or eat properly at home. States she would like to have her go to [facility] in [place] for therapy. I spoke with the patient and she does not want rehab at this time. CM encouraged patient to go to a skilled facility prior to discharging home. Patient states she "will think about it." I informed her that we will meet with her again tomorrow to discuss going to [facility] in [place]. Daughter states if Noy, liaison for [facility], comes to speak with patient she would like to be notified to be here. CM will continue to follow and assist with discharge planning/needs. Granulator Operator: Kassy Sorto DCPIA - Discharge Planning Initial Assessment Updated by [email or web address]: Kassy Sorto on 09/20/20 5:47 pm * Is the patient Alert and Oriented? Yes * PCP Mandie Rivas at [facility] on [address] * Pharmacy [facility] * Preadmission Environment Home Alone * ADLs Independent * Equipment Cane Oxygen * List name and contact numbers for known caregivers / representatives who currently or will assist patient after discharge: Robert Shine [facility] - [phone] * Community resources currently utilized None * Additional services required to return to the preadmission environment? Yes * Can the patient safely return to the preadmission environment? No * Has this patient been hospitalized within the prior 30 days at any hospital? No Patient Name: HANNA PIERCE Page [phone] at 1752 All edits/amendments must be made on the electronic document DICTATION DATE: 09/20/201750 VENDING MACHINE TECHNICIAN: YENI 09/20/201750 RPT#: [id number] DC DATE: STATUS: ADM IN [facility] [address] [place] [address] END OF REPORT
--- NOTE | 2020-09-20 19:44 | NUR ---
RECIEVED LAYING IN BED WITH EYES OPEN. ALERT AND ORIENTED X4. UP WITH ASSIST TO BEDSIDE COMMODE. O2@ 2 LITERS PER N/C IN PLACE. IJ TO RIGHT SIDE WITH AMIORDONE AT 17CC/HR AND D5 1/2NS 20MEQKCL AT 50CC/HR. F/C INTACT WITH CLEAR YELLOW URINE IN BEDSIDE DRAINAG BAG. TELEMETRY IN PLACE. DENIES ANY NEEDS AT THIS TIME.
[2020-09-21 03:59] VITALS: BP 123/66
[2020-09-21 07:57] LABS: CALCIUM 7.5 mg/dL (8.5-10.1); CARBON DIOXIDE 33.6 mmol/L (21.0-32.0); CHLORIDE - SERUM 106 mmol/L (98-107); CREATININE - SERUM 0.8 mg/dL (0.6-1.3); GLUCOSE 86 mg/dL (74-106); SODIUM 140 mmol/L (136-145); eGFR NON AFRICAN AMERICAN 75 mL/min (90-120)
[2020-09-21 07:58] LABS: BASOPHILS 0 % (0-2); CALC OSMOLALITY 277 mosm/kg (275-300); EOSINOPHILS 0.2 % (0-7); HEMATOCRIT 36.2 % (36.0-48.0); HEMOGLOBIN 11.5 g/dL (12-16); IMMATURE GRANULOCYTES 0.4 % (0-5); LYMPHOCYTE ABS# 0.74 10x3/uL (1.18-3.74); LYMPHOCYTES 5.7 % (15-50); MCH 27.7 pg (26.0-34.0); MCHC 31.8 g/dL (31.0-37.0); MCV 87.2 fL (80.0-100.0); MEAN PLATELET VOLUME 10.4 fL (7.4-10.4); NEUTROPHIL ABS# 10.79 10x3/uL (1.56-6.13); NEUTROPHILS 83.7 % (40-80); PLATELET COUNT 137 10x3/uL (130-400); RBC 4.15 10x6/uL (4.00-5.40); RDW 15.3 % (11.5-14.5); UREA NITROGEN 12 mg/dL (7-18); WBC 12.9 10x3/uL (4.8-10.8)
[2020-09-21 07:59] LABS: POTASSIUM - SERUM 2.8 mmol/L (3.5-5.1)
[2020-09-21 08:59] VITALS: BP 144/74
[2020-09-21 12:19] VITALS: BP 129/71
[2020-09-21 17:41] VITALS: BP 130/76
--- NOTE | 2020-09-21 19:08 | NUR ---
LYING IN BED AWAKE, ALERT, WATCHING TV. RESP EVEN AND UNLABORED W/02 IN PROGRESS/ORDER. NO DISTRESS NOTED. NO NEEDS VOICED.
[2020-09-21 21:14] VITALS: BP 116/64
--- NOTE | 2020-09-22 04:48 | NUR ---
ALL IV MEDS STOPPED FOR APPROX 10 MINUTES--FLUSHED TRIALYSIS MIDDLE PORT W/10CCNS THEN WITHDREW 10CC'S BLOOD AND WASTED, THEN WITHDREW 10CC'S AND SENT TO LAB FOR AM ORDERED LAB TESTING--THEN FLUSHED W/10CC'S NS AND RESTARTED ALL IV MEDS. PT LYING IN BED W/EYES CLOSED, RESP EVEN AND UNLABORED W/ IN PROGRESS/ORDER--PT HAS RESTED WELL TONIGHT W/O C/O. NO DISTRESS NOTED.
[2020-09-22 04:54] VITALS: BP 122/59
[2020-09-22 05:46] LABS: BASOPHILS 0 % (0-2); EOSINOPHILS 0.5 % (0-7); HEMATOCRIT 35.9 % (36.0-48.0); HEMOGLOBIN 11.4 g/dL (12-16); IMMATURE GRANULOCYTES 0.3 % (0-5); LYMPHOCYTE ABS# 0.82 10x3/uL (1.18-3.74); LYMPHOCYTES 5.6 % (15-50); MCH 27.8 pg (26.0-34.0); MCHC 31.8 g/dL (31.0-37.0); MCV 87.6 fL (80.0-100.0); MEAN PLATELET VOLUME 10.6 fL (7.4-10.4); MONOCYTES 12.1 % (2-11); NEUTROPHIL ABS# 12.04 10x3/uL (1.56-6.13); NEUTROPHILS 81.5 % (40-80); PLATELET COUNT 161 10x3/uL (130-400); RDW 15.4 % (11.5-14.5); WBC 14.8 10x3/uL (4.8-10.8)
[2020-09-22 06:44] LABS: CALC OSMOLALITY 280 mosm/kg (275-300); CALCIUM 7.5 mg/dL (8.5-10.1); CARBON DIOXIDE 31.8 mmol/L (21.0-32.0); CHLORIDE - SERUM 105 mmol/L (98-107); CREATININE - SERUM 0.8 mg/dL (0.6-1.3); GLUCOSE 84 mg/dL (74-106); MAGNESIUM - SERUM 1.3 mg/dL (1.8-2.4); PHOSPHOROUS 2.9 mg/dL (2.5-4.9); SODIUM 142 mmol/L (136-145); UREA NITROGEN 9 mg/dL (7-18); eGFR NON AFRICAN AMERICAN 75 mL/min (90-120)
[2020-09-22 07:14] LABS: POTASSIUM - SERUM 2.4 mmol/L (3.5-5.1)
--- NOTE | 2020-09-22 07:30 | NUR ---
PT LYING IN BED WITH EYES CLOSED. RAISES EASILY TO VERBAL STIMULI. AAOX4. RESP EVEN AND UNLABORED. O2 VIA NC @ [address] 16 F FC DRAINING CLEAR LEXIE URINE. SCDs IN PLACE AND FUNCTIONING PROPERLY. PT DENIES NEEDS AT THIS TIME. CALL LIGHT AND WATER WITHIN REACH. BED IN LOWEST POSITION. SR X2
[2020-09-22 08:00] VITALS: BP 120/62
[2020-09-22 11:00] VITALS: BP 127/65
--- NOTE | 2020-09-22 12:24 | NUR ---
I have reviewed this patient and I concur with the Shift Assessment completed by the Licensed Practical Nurse today this shift.
--- NOTE | 2020-09-22 12:45 | NUR ---
OT NOTE: PT ABLE TO WASH HANDS AND FACE WITH WASHCLOTH AND SET UP. VERBAL CUES TO STAY FOCUSED ON TASK. BED MOB WITH MIN ASSIST; EOB SITTING WITH FAIR+ BALANCE. UE/LE EXS WHILE ON EOB. PT ABLE TO FEED SELF HOWEVER, SHE DOES NOT WANT TO EAT. TOMAS AGUILAR, OTR/L [phone]
[2020-09-22 15:00] VITALS: BP 120/63
--- NOTE | 2020-09-22 19:05 | NUR ---
LYING IN BED AWAKE, ALERT, ORIENTED. RESP EVEN AND UNLABORED W/02 IN PROGRESS/ORDER. NO DISTRESS NOTED.
--- NOTE | 2020-09-22 19:30 | NUR ---
CONTACTED DR SIMONS AND DISCUSSED WITH HIM THAT PT HAS HAD DIARRHEA NOW FOR THE PAST 2 DAYS THAT I AM AWARE OF AND DOES NOT HAVE ANYTHING ORDERED FOR THAT. NEW ORDER FOR LOMOTIL 2PO Q6HPRN DIARRHEA AND A C-DIFF. EXPLAINED TO DR SIMONS THAT PT C/O PAIN TO CARR SITE WELL. NEW ORDER TO DC CARR AND ORDER UA. EXPLAINED TO DR SIMONS THAT PT'S POT LEVEL WAS 2.4 THIS AM AND ONLY 2.9 THIS ROSHAN AFTER TAKING THE POT PROTOCOL. NO NEW ORDERS. ALSO TOLD DR SIMONS THAT PT C/O PAIN AND TAKES PAIN MEDS ON REGULAR BASIS AT HOME ACCORDING TO HER. NEW ORDER FOR TYLENOL 500MG Q6H PRN PAIN.
--- NOTE | 2020-09-22 20:57 | NUR ---
CALL LIGHT ALARMING, PT UP TO BSC BEFORE NURSE IN ROOM--ASSISTED PT FROM BSC BACK INTO BED--REMINDED PT TO WAIT FOR ASSISTANCE BEFORE GETTING UP OOB W/UNDERSTANDING STATED. PM MEDS ADMINISTERED/ORDER ALONG W/LOMOTIL AND TYLENOL FOR C/O PAIN AND DIARRHEA. NO FURTHER NEEDS VOICED AT THIS TIME, PT TOLERATED ALL WELL.
[2020-09-22 22:31] VITALS: BP 133/64
[2020-09-23 00:51] VITALS: BP 138/66
--- NOTE | 2020-09-23 01:10 | NUR ---
Late Entry 09/21/20 CM spoke with patient regarding rehab / snf. Patient states that she just wants to go home, CM asked how she was doing with therapy. Patient states not to well my feet want to slide out from under me. Patient states that her sister lives next door and will check on her. CM explained that her sister being next door and her being in the floor is not a good combination. CM asked patient to think about her options and CM will revisit later. CM looked at therapy notes they are recommending Rehab v/s SNF. Patient only walking 2-6 ft with mod assist. Patient also has OT and ST working with her. CM will continue to follow and assist as needed with discharge planning.
[2020-09-23 04:54] VITALS: BP 120/61
[2020-09-23 10:19] VITALS: BP 122/65
--- NOTE | 2020-09-23 10:57 | NUR ---
Nutrition Follow-up: PO intake remains poor. Small amt of breakfast eaten this AM. Hesitant to eat 2/2 diarrhea, although reports diarrhea is improving. Declines nutrition supplements for the same reason. ST following. Diet: Regular, Mech Soft; add gravy, sauces, and/or condiments to meats PO intake: 33% avg x 3 meals yesterday No new wt; last wt: 103.6# (09/17) Labs noted: K+ 2.9 (09/22), Ca 7.5 (09/22), Mg 1.1 (09/23) Meds noted: Lomotil, Protonix, Colace (last given yesterday AM), Lasix, KDur, Prednisone, D5 1/2NS KCl @ 50, electrolyte protocol -Encourage PO intake and honor food preferences within diet restrictions. -Pt may benefit from an appetite stimulant. -If PO intake remains poor, may consider nutrition support (Procal?). -Need new wt. -RD follow-up: 09/27
[2020-09-23 11:10] LABS: BACTERIA FEW HPF (NONE SEEN); BILIRUBIN NEGATIVE (NEGATIVE); KETONE NEGATIVE (NEGATIVE); NITRITE NEGATIVE (NEGATIVE); SQUAMOUS EPITHELIAL 0-5 HPF (0-4); UROBILINOGEN NORMAL mg/dL (< 2); WHITE CELLS - URINE 0-5 HPF (0-4)
--- NOTE | 2020-09-23 12:01 | MORECARE ---
CASE MANAGEMENT DISCHARGE SUMMARY PATIENT: HANNA PIERCE UNIT: [id number] ADM DATE: 09/13/20 AGE: 70 : 52 SEX: F ROOM/BED: D.[facility] AUTHOR: RYLIE,DOC PHYSICIAN: REFERRING PHYSICIAN: EDIE SIMONS MD DATE OF SERVICE: 09/23/20 Case Management Discharge Planning Summary COMMENTS ENTERED DATE: 09/23/20 0:38 CT COMMENT TYPE: Discharge Planning REVIEWER: Anaid Scott Late Entry 09/21/20 CM spoke with patient regarding rehab / snf. Patient states that she just wants to go home, CM asked how she was doing with therapy. Patient states not to well my feet want to slide out from under me. Patient states that her sister lives next door and will check on her. CM explained that her sister being next door and her being in the floor is not a good combination. CM asked patient to think about her options and CM will revisit later. CM looked at therapy notes they are recommending Rehab v/s SNF. Patient only walking 2-6 ft with mod assist. Patient also has OT and ST working with her. CM will continue to follow and assist as needed with discharge planning. DCP REVIEW SUMMARY ANTICIPATED D/C DATE: EXPECTED LOS : CASE STATUS: DCP Initiated INITIAL REVIEW: 09/21/2020 INITIAL REVIEWER: Anaid Scott FINAL DISCHARGE DISPOSITION: : FINAL REVIEWER: FINAL REVIEW DATE: DCP Focus Questions & Answers - Added on: QUESTION: ANSWER : PATIENT: HANNA PIERCE ENCOUNTER: [id number] MEDICAL RECORD#: [id number] ADMISSION DATE: 09/13/2020 DISCHARGE DATE: ATTENDING MD: EDIE JACOBS : AGE: 70 MARITAL STATUS: S DC PLAN ID: [id number] FACILITY: [facility] PRINTED ON: 09/23/20 12:01 CT All edits/amendments must be made on the electronic document DICTATION DATE: 09/23/201200 SOLAR PANEL TECHNICIAN: YENI 09/23/201200 RPT#: [id number] DC DATE: STATUS: ADM IN [facility] [address] [place] [address] END OF REPORT
[2020-09-23 12:49] VITALS: BP 133/64
--- NOTE | 2020-09-23 15:50 | NUR ---
OT NOTE: PT PERFORMING BED MOB WITH MIN ASSIST; MIN ASSIST WITH TRANSFERS TO BS COMMODE; PT REMAINS WEAK..PT WOULD BENEFIT FROM IP REHAB PRIOR TO DC [phone]
--- NOTE | 2020-09-23 15:50 | NUR ---
PATIENT WALKED 40 FEET WITH MIN ASST BUT BUT IS STILL UNSTEADY AT TIMES AND WEAK. SAT IN CHAIR AFTER WALK.
[2020-09-23 16:24] VITALS: BP 150/74
--- NOTE | 2020-09-23 16:31 | NUR ---
OT NOTE: PT REQUIRED MODERATED CUES FOR INCREASED PARTICIPATION. PT COMPLETED SUPINE TO SIT WITH SBA-CGA. PT COMPLETED ADL MOB WITH WITH CGA. PT COMPLETED TOILETING TASKS WITH CGA-MIN A. PT REQUIRED SETUP FOR TOILET HYGIENE. PT REQUIRED CGA-MIN A FOR CLOTHING MANAGEMENT. PT COMPLETED HAND WASHING AT SINK LEVEL WITH CGA-MIN A. [phone] THANK YOU,REHANA STEWART
[2020-09-23 20:00] VITALS: BP 92/67
[2020-09-23 20:34] LABS: MAGNESIUM - SERUM 1.1 mg/dL (1.8-2.4)
--- NOTE | 2020-09-24 01:10 | NUR ---
I have reviewed this patient and I concur with the Shift Assessment completed by the Licensed Practical Nurse today this shift.
[2020-09-24 04:13] VITALS: BP 126/64
[2020-09-24 05:29] LABS: C-REACTIVE PROTEIN 9.7 mg/dL (0.0-0.9)
[2020-09-24 05:50] LABS: HEMATOCRIT 34.6 % (36.0-48.0); LYMPHOCYTE ABS# 0.64 10x3/uL (1.18-3.74); MCH 27.8 pg (26.0-34.0); MCHC 31.8 g/dL (31.0-37.0); MCV 87.4 fL (80.0-100.0); MEAN PLATELET VOLUME 10.8 fL (7.4-10.4); NEUTROPHIL ABS# 21.22 10x3/uL (1.56-6.13); PLATELET COUNT 210 10x3/uL (130-400); RBC 3.96 10x6/uL (4.00-5.40); RDW 15.3 % (11.5-14.5); WBC 24.1 10x3/uL (4.8-10.8)
[2020-09-24 06:40] LABS: LYMPHOCYTES 5 % (15-50); NEUTROPHILS 95 % (40-80); PLATELET ESTIMATE NORMAL
[2020-09-24 06:58] LABS: ERYTHROCYTE SEDIMENTATION RATE 10 mm/hr (0-30)
[2020-09-24 07:58] VITALS: BP 129/61
[2020-09-24 10:47] VITALS: BP 129/63
--- NOTE | 2020-09-24 11:00 | NUR ---
LYING IN BED, AWAKE/ALERT/ORIENTED, T/R SELF AD ANGELITO, CONT OF B/B WITH BSC PER SELF AD ANGELITO, DENIES PAIN/OTHER DISCOMFORT AT THIS TIME, CALL LIGHT/PHONE/WATER WITHIN REACH, NO S/S OF ACUTE DISTRESS OBSERVED.
--- NOTE | 2020-09-24 15:26 | NUR ---
OT NOTE: PT PLEASANTLY REFUSED TMT THIS AM, HOWEVER, WITH ENCOURAGEMENT, PT ABLE TO PERFORM BED MOB WITH MIN ASSIST; TRANSFER TO BS COMMODE WITH MIN ASSIST; MIN ASSIST WITH LE DRESSING WITH CUES..MODERATE ENCOURAGEMENT REQUIRED THROUGHOUT TMT TODAY. TOMAS AGUILAR, OTR/L [phone]
--- NOTE | 2020-09-24 16:07 | NUR ---
OT NOTE: PT COMPLETED BED TO BSC TSF WITH CGA. PT COMPLETED CLOTHING MANAGEMENT WITH CGA. PT COMPLETED TOILETING HYGIENE WITH SBA. PT COMPLETED DEMETRIUS SOCKS WITH SETUP. [phone] THANK YOU,REHANA STEWART
[2020-09-24 16:44] VITALS: BP 116/65
--- NOTE | 2020-09-24 19:37 | NUR ---
RECEIVED REPORT, WILL ASSUME CARE OF PT, RESTING, DENIES ANY NEEDS AT THIS TIME, BED IS LOW, SRX2, CALL LIGHT IN REACH, WILL CONTINUE PLAN OF CARE
[2020-09-24 20:57] VITALS: BP 138/74
[2020-09-25 00:13] VITALS: BP 120/71
--- NOTE | 2020-09-25 02:15 | NUR ---
I have reviewed this patient and I concur with the Shift Assessment completed by the Licensed Practical Nurse today this shift.
[2020-09-25 06:14] VITALS: BP 124/63
[2020-09-25 06:37] LABS: BASOPHILS 0 % (0-2); EOSINOPHILS 0.1 % (0-7); HEMATOCRIT 32.7 % (36.0-48.0); HEMOGLOBIN 10.4 g/dL (12-16); IMMATURE GRANULOCYTES 0.5 % (0-5); MCH 27.8 pg (26.0-34.0); MCHC 31.8 g/dL (31.0-37.0); MCV 87.4 fL (80.0-100.0); MEAN PLATELET VOLUME 11.5 fL (7.4-10.4); MONOCYTES 9.9 % (2-11); NEUTROPHIL ABS# 13.63 10x3/uL (1.56-6.13); NEUTROPHILS 84.5 % (40-80); PLATELET COUNT 218 10x3/uL (130-400); RBC 3.74 10x6/uL (4.00-5.40); RDW 15.7 % (11.5-14.5); WBC 16.1 10x3/uL (4.8-10.8)
--- NOTE | 2020-09-25 07:30 | NUR ---
AM rounds, no needs voiced, call light/phone/water within reach, no s/s of acute distress observed.
[2020-09-25 07:33] LABS: ALBUMIN 1.8 g/dL (3.4-5.0); ANION GAP 2.5 mmol/L (8-16); BILIRUBIN - TOTAL 0.94 mg/dL (0.2-1.3); CALCIUM 7.3 mg/dL (8.5-10.1); CARBON DIOXIDE 34.4 mmol/L (21.0-32.0); CREATININE - SERUM 0.9 mg/dL (0.6-1.3); PROTEIN - SERUM 4.7 g/dL (6.4-8.2)
[2020-09-25 07:37] LABS: POTASSIUM - SERUM 2.9 mmol/L (3.5-5.1)
--- NOTE | 2020-09-25 07:38 | NUR ---
[employer] Assistant Luba called potassium results, paged physician.
--- NOTE | 2020-09-25 07:42 | NUR ---
Reported potassium to Dr. Pratt, Ep IV ordered.
[2020-09-25 09:37] VITALS: BP 122/76
[2020-09-25 17:08] VITALS: BP 138/72
[2020-09-25 20:52] VITALS: BP 127/69
[2020-09-26 05:35] LABS: BASOPHILS 0 % (0-2); EOSINOPHILS 0.2 % (0-7); IMMATURE GRANULOCYTES 0.3 % (0-5); LYMPHOCYTE ABS# 0.74 10x3/uL (1.18-3.74); MCH 28.2 pg (26.0-34.0); MCHC 32.3 g/dL (31.0-37.0); MCV 87.3 fL (80.0-100.0); MEAN PLATELET VOLUME 10.3 fL (7.4-10.4); NEUTROPHIL ABS# 10.39 10x3/uL (1.56-6.13); NEUTROPHILS 83.5 % (40-80); PLATELET COUNT 202 10x3/uL (130-400); RBC 3.55 10x6/uL (4.00-5.40); RDW 15.5 % (11.5-14.5); WBC 12.4 10x3/uL (4.8-10.8)
[2020-09-26 05:41] VITALS: BP 127/66
[2020-09-26 06:14] LABS: ALBUMIN 1.9 g/dL (3.4-5.0); ALKALINE PHOSPHATASE 67 U/L (30-120); ALT (SGPT) 18 U/L (10-68); CALC OSMOLALITY 273 mosm/kg (275-300); CALCIUM 7.4 mg/dL (8.5-10.1); CARBON DIOXIDE 32.8 mmol/L (21.0-32.0); CHLORIDE - SERUM 104 mmol/L (98-107); CREATININE - SERUM 0.8 mg/dL (0.6-1.3); GLUCOSE 92 mg/dL (74-106); MAGNESIUM - SERUM 1.3 mg/dL (1.8-2.4); PROTEIN - SERUM 4.6 g/dL (6.4-8.2); SODIUM 138 mmol/L (136-145); UREA NITROGEN 7 mg/dL (7-18); eGFR NON AFRICAN AMERICAN 75 mL/min (90-120)
[2020-09-26 06:16] LABS: POTASSIUM - SERUM 3.4 mmol/L (3.5-5.1)
[2020-09-26 09:28] VITALS: BP 121/66
[2020-09-26 16:32] VITALS: BP 123/64
--- NOTE | 2020-09-26 19:23 | NUR ---
RECEIVED REPORT, WILL ASSUME CARE OF PT, ASKING FOR EMELYWATER (PROVIDED), BED IS LOW, SRX2, CALL LIGHT IN REACH, WILL CONTINUE PLAN OF CARE
[2020-09-26 20:30] VITALS: BP 129/69
[2020-09-27] VITALS (7 sets, daily range): BP systolic 109–127; BP diastolic 55–73
[2020-09-27 05:29] LABS: BASOPHILS 0 % (0-2); EOSINOPHILS 0.3 % (0-7); HEMATOCRIT 30.7 % (36.0-48.0); HEMOGLOBIN 9.8 g/dL (12-16); IMMATURE GRANULOCYTES 0.2 % (0-5); LYMPHOCYTE ABS# 0.78 10x3/uL (1.18-3.74); LYMPHOCYTES 6.1 % (15-50); MCH 27.9 pg (26.0-34.0); MCHC 31.9 g/dL (31.0-37.0); MCV 87.5 fL (80.0-100.0); MEAN PLATELET VOLUME 10.8 fL (7.4-10.4); MONOCYTES 10.6 % (2-11); NEUTROPHIL ABS# 10.59 10x3/uL (1.56-6.13); NEUTROPHILS 82.8 % (40-80); PLATELET COUNT 214 10x3/uL (130-400); RBC 3.51 10x6/uL (4.00-5.40); RDW 15.6 % (11.5-14.5); WBC 12.8 10x3/uL (4.8-10.8)
--- NOTE | 2020-09-27 05:41 | NUR ---
I have reviewed this patient and I concur with the Shift Assessment completed by the Licensed Practical Nurse today this shift.
[2020-09-27 06:00] LABS: ALBUMIN 1.9 g/dL (3.4-5.0); ANION GAP 5.7 mmol/L (8-16); BILIRUBIN - TOTAL 0.98 mg/dL (0.2-1.3); CALCIUM 7.4 mg/dL (8.5-10.1); CARBON DIOXIDE 35.3 mmol/L (21.0-32.0); MAGNESIUM - SERUM 1.2 mg/dL (1.8-2.4); PROTEIN - SERUM 4.6 g/dL (6.4-8.2)
[2020-09-27 06:02] LABS: CREATININE - SERUM 1.1 mg/dL (0.6-1.3)
--- NOTE | 2020-09-27 10:04 | NUR ---
NURSE TALKS WITH DR ETIENNE AND INFECTION CONTROL AND TAKES PATIENT OFF OF ISOLATION PRECAUTIONS
--- NOTE | 2020-09-27 14:03 | NUR ---
Nutrition Reassessment/Follow-up: Observed small amt of breakfast eaten this AM. C/o nausea without vomiting, as well as diarrhea (reports improvement). Continues to decline nutrition supplements. ST following. Diet: Regular, Mech Soft; add gravy, sauces, &/or condiments to meats Ht: 5'5"Wt: 103.6# (09/17)BMI: 17.2 (underweight) Labs noted: K+ 3.0, Ca 7.4, Mg 1.2, Alb 1.9 Meds noted: Lasix, KDur, Lomotil, Prednisone, Protonix, D5 1/2NS KCl @ 75, electrolyte protocol -Nutrition needs unchanged; no new wt available. -Encourage PO intake and honor food preferences within diet restrictions. -Offer nutrition supplements. -Pt may benefit from an appetite stimulant. -MD may consider nutrition support 2/2 ongoing poor PO intake & severe malnutrition if medically feasible and/or desired. -Need new wt. -RD will follow up within 2-3 days.
--- NOTE | 2020-09-27 16:50 | NUR ---
OT NOTE: PT EXHIBITED MILD CONFUSION. PT COMPLETED SUPINE TO SIT WITH SBA. PT COMPLETED BED TO BSC TSF WITH CGA. PT COMPLETED CLOTHING MANAGEMENT WITH CGA. PT COMPLETED TOILET HYGIENE WITH SETUP. PT COMPLETED FACE AND HAND HYGIENE WITH SETUP. [phone] THANK YOU,REHANA STEWART
--- NOTE | 2020-09-27 17:01 | NUR ---
OT NOTE: BED MOB WITH MIN ASSIST. TRANSFERS WITH MIN/CGA; TOILETING WITH MIN ASSIST. ABLE TO PERFORM GROOMING TASKS WITH SET UP. DISCUSSED IN IDT MTG THE FACT THAT PT DOES NOT INITIATE ADLS..NOR IS SHE EATING VERY MUCH. WANTS TO STAY IN BED MOST OF TIME, AND SINCE SHE LIVES ALONE, I DONT FEEL ITS SAFE FOR HER TO RETURN HOME ALONE. TOMAS AGUILAR, OTR/L [phone]
--- NOTE | 2020-09-27 19:30 | NUR ---
PT IN BED, AAO X 2, RESP EVEN AND UNLABORED, NO DISTRESS NOTED, CL IN REACH, SR UP X 2.
[2020-09-28 02:14] LABS: BILIRUBIN NEGATIVE (NEGATIVE); KETONE NEGATIVE (NEGATIVE); NITRITE NEGATIVE (NEGATIVE); UROBILINOGEN NORMAL mg/dL (< 2)
[2020-09-28 02:15] LABS: BACTERIA FEW HPF (NONE SEEN); SQUAMOUS EPITHELIAL 0-5 HPF (0-4); WHITE CELLS - URINE 0-5 HPF (0-4)
--- NOTE | 2020-09-28 03:02 | NUR ---
I have reviewed this patient and I concur with the Shift Assessment completed by the Licensed Practical Nurse today this shift.
[2020-09-28 04:33] VITALS: BP 145/64
[2020-09-28 04:34] LABS: BASOPHILS 0 % (0-2); EOSINOPHILS 0.7 % (0-7); HEMATOCRIT 29.3 % (36.0-48.0); HEMOGLOBIN 9.2 g/dL (12-16); IMMATURE GRANULOCYTES 0.3 % (0-5); LYMPHOCYTE ABS# 0.99 10x3/uL (1.18-3.74); LYMPHOCYTES 10.8 % (15-50); MCH 27.4 pg (26.0-34.0); MCHC 31.4 g/dL (31.0-37.0); MCV 87.2 fL (80.0-100.0); MEAN PLATELET VOLUME 10.4 fL (7.4-10.4); MONOCYTES 9.8 % (2-11); NEUTROPHIL ABS# 7.21 10x3/uL (1.56-6.13); NEUTROPHILS 78.4 % (40-80); PLATELET COUNT 203 10x3/uL (130-400); RBC 3.36 10x6/uL (4.00-5.40); RDW 15.5 % (11.5-14.5)
[2020-09-28 04:51] LABS: WBC 9.2 10x3/uL (4.8-10.8)
[2020-09-28 05:26] LABS: ALBUMIN 1.8 g/dL (3.4-5.0); ALKALINE PHOSPHATASE 64 U/L (30-120); ALT (SGPT) 14 U/L (10-68); BILIRUBIN - TOTAL 0.73 mg/dL (0.2-1.3); CALC OSMOLALITY 276 mosm/kg (275-300); CALCIUM 7.4 mg/dL (8.5-10.1); CHLORIDE - SERUM 104 mmol/L (98-107); GLUCOSE 83 mg/dL (74-106); PROTEIN - SERUM 4.4 g/dL (6.4-8.2); SODIUM 140 mmol/L (136-145); UREA NITROGEN 10 mg/dL (7-18)
[2020-09-28 05:35] LABS: CREATININE - SERUM 0.8 mg/dL (0.6-1.3); POTASSIUM - SERUM 3.9 mmol/L (3.5-5.1); eGFR NON AFRICAN AMERICAN 75 mL/min (90-120)
[2020-09-28 08:00] VITALS: BP 149/73
[2020-09-28 11:00] VITALS: BP 148/73
[2020-09-28 12:53] LABS: MAGNESIUM - SERUM 1.4 mg/dL (1.8-2.4); POTASSIUM - SERUM 3.5 mmol/L (3.5-5.1)
[2020-09-28 15:00] VITALS: BP 143/76
--- NOTE | 2020-09-28 16:11 | NUR ---
OT NOTE: PT COMPLETED BED MOBILITY WITH SBA. PT COMPLETED SIT TO STAND WITH SBA-CGA. PT COMPLETED ADL MOB WITH SBA-CGA. PT COMPLETED HAIR GROOMING WITH MOD A. PT COMPLETED DEMETRIUS SOCKS WITH SETUP. PT COMPLETED FACE HYGIENE WITH SETUP. [phone] THANK YOU,REHANA STEWART
--- NOTE | 2020-09-28 19:30 | NUR ---
PT IN BED, EYES CLOSED, RESP EVEN AND UNLABORED, NO DISTRESS NOTED, CL IN REACH, SR UP X 2.
[2020-09-28 20:00] VITALS: BP 118/67
[2020-09-29 04:00] VITALS: BP 118/58
--- NOTE | 2020-09-29 04:14 | NUR ---
I have reviewed this patient and I concur with the Shift Assessment completed by the Licensed Practical Nurse today this shift.
[2020-09-29 05:31] LABS: BASOPHILS 0 % (0-2); EOSINOPHILS 0.6 % (0-7); HEMATOCRIT 30.9 % (36.0-48.0); HEMOGLOBIN 9.9 g/dL (12-16); IMMATURE GRANULOCYTES 0.3 % (0-5); LYMPHOCYTE ABS# 1.22 10x3/uL (1.18-3.74); LYMPHOCYTES 11.8 % (15-50); MCV 87.5 fL (80.0-100.0); MEAN PLATELET VOLUME 10.6 fL (7.4-10.4); MONOCYTES 8.4 % (2-11); NEUTROPHIL ABS# 8.17 10x3/uL (1.56-6.13); NEUTROPHILS 78.9 % (40-80); PLATELET COUNT 231 10x3/uL (130-400); RBC 3.53 10x6/uL (4.00-5.40); RDW 15.5 % (11.5-14.5); WBC 10.4 10x3/uL (4.8-10.8)
[2020-09-29 06:30] LABS: ALBUMIN 1.9 g/dL (3.4-5.0); ANION GAP 8.4 mmol/L (8-16); BILIRUBIN - TOTAL 0.69 mg/dL (0.2-1.3); CALCIUM 7.7 mg/dL (8.5-10.1); CARBON DIOXIDE 30.3 mmol/L (21.0-32.0); CREATININE - SERUM 0.9 mg/dL (0.6-1.3); POTASSIUM - SERUM 3.7 mmol/L (3.5-5.1); PROTEIN - SERUM 4.7 g/dL (6.4-8.2)
--- NOTE | 2020-09-29 07:45 | NUR ---
NURSE CHANGES PATIENT LINENS THIS AM. PLAN OF CARE REVIEWED AND ASSESSMENTHAS BEEN COMPLETED. PATIENT REPORTS BLOOD IN HER URINE STILL THIS AM. CALL LIGHT IN REACH.
[2020-09-29 07:59] VITALS: BP 127/67
--- NOTE | 2020-09-29 10:23 | MORECARE ---
CASE MANAGEMENT DISCHARGE SUMMARY PATIENT: HANNA PIERCE UNIT: [id number] ADM DATE: 09/13/20 AGE: 70 : 52 SEX: F ROOM/BED: D.8082 AUTHOR: RYLIE,DOC PHYSICIAN: REFERRING PHYSICIAN: EDIE SIMONS MD DATE OF SERVICE: 09/29/20 Case Management Discharge Planning Summary COMMENTS ENTERED DATE: 09/29/20 10:18 CT COMMENT TYPE: Discharge Planning REVIEWER: Kassy Macario CM spoke again with patient concerning rehab, she declines. She consents to home health and WILLI for [facility] signed. States her GARRETT will drive her home on discharge. States she has oxygen with portability and nebulizer from [facility]. States she has "everything" including a shower bench, walker and cane. CM will fax referral to [facility]. ENTERED DATE: 09/23/20 0:38 CT COMMENT TYPE: Discharge Planning REVIEWER: Anaid Scott Late Entry 09/21/20 CM spoke with patient regarding rehab / snf. Patient states that she just wants to go home, CM asked how she was doing with therapy. Patient states not to well my feet want to slide out from under me. Patient states that her sister lives next door and will check on her. CM explained that her sister being next door and her being in the floor is not a good combination. CM asked patient to think about her options and CM will revisit later. CM looked at therapy notes they are recommending Rehab v/s SNF. Patient only walking 2-6 ft with mod assist. Patient also has OT and ST working with her. CM will continue to follow and assist as needed with discharge planning. DCP REVIEW SUMMARY ANTICIPATED D/C DATE: EXPECTED LOS : CASE STATUS: DCP Initiated INITIAL REVIEW: 09/21/2020 INITIAL REVIEWER: Anaid Scott FINAL DISCHARGE DISPOSITION: : FINAL REVIEWER: FINAL REVIEW DATE: DCP Focus Questions & Answers - Added on: QUESTION: ANSWER : PATIENT: HANNA PIERCE ENCOUNTER: [id number] MEDICAL RECORD#: [id number] ADMISSION DATE: 09/13/2020 DISCHARGE DATE: ATTENDING MD: EDIE JACOBS : AGE: 70 MARITAL STATUS: S DC PLAN ID: [id number] FACILITY: [facility] PRINTED ON: 09/29/20 10:22 CT All edits/amendments must be made on the electronic document DICTATION DATE: 09/29/20 102 INTEL ANALYST: YENI 09/29/20 1022 RPT#: [id number] DC DATE: STATUS: ADM IN [facility] [address] [place] [address] END OF REPORT
[2020-09-29 10:52] VITALS: BP 127/63
--- NOTE | 2020-09-29 11:01 | NUR ---
PAGE INTO DR SIMONS FOR D/C ORDERS PATIENT WANTS TO GO HOME. AWAITING CALL BACK.
--- NOTE | 2020-09-29 11:07 | NUR ---
JOSE DE JESUS FOR DISCHARGE WITH DR ETIENNE, PAGED DR SIMONS AGAIN FOR FINAL ORDERS.
--- NOTE | 2020-09-29 11:10 | MORECARE ---
CASE MANAGEMENT DISCHARGE SUMMARY PATIENT: HANNA PIERCE UNIT: [id number] ADM DATE: 09/13/20 AGE: 70 : 52 SEX: F ROOM/BED: D.4997 AUTHOR: RYLIE,DOC PHYSICIAN: REFERRING PHYSICIAN: EDIE SIMONS MD DATE OF SERVICE: 09/29/20 Case Management Discharge Planning Summary COMMENTS ENTERED DATE: 09/29/20 11:01 CT COMMENT TYPE: Discharge Planning REVIEWER: Kassy Sorto [facility] HAS DECLINED, NO AVAILABILITY. REFERRAL FAXED TO [place]. ENTERED DATE: 09/29/20 10:18 CT COMMENT TYPE: Discharge Planning REVIEWER: Kassy Sorto CM spoke again with patient concerning rehab, she declines. She consents to home health and [facility] for [facility] signed. States her GARRETT will drive her home on discharge. States she has oxygen with portability and nebulizer from [facility]. States she has "everything" including a shower bench, walker and cane. CM will fax referral to [facility] [employer] [facility]. ENTERED DATE: 09/23/20 0:38 CT COMMENT TYPE: Discharge Planning REVIEWER: Anaid Scott Late Entry 09/21/20 CM spoke with patient regarding rehab / snf. Patient states that she just wants to go home, CM asked how she was doing with therapy. Patient states not to well my feet want to slide out from under me. Patient states that her sister lives next door and will check on her. CM explained that her sister being next door and her being in the floor is not a good combination. CM asked patient to think about her options and CM will revisit later. CM looked at therapy notes they are recommending Rehab v/s SNF. Patient only walking 2-6 ft with mod assist. Patient also has OT and ST working with her. CM will continue to follow and assist as needed with discharge planning. DCP REVIEW SUMMARY ANTICIPATED D/C DATE: EXPECTED LOS : CASE STATUS: DCP Initiated INITIAL REVIEW: 09/21/2020 INITIAL REVIEWER: Anaid Scott FINAL DISCHARGE DISPOSITION: : FINAL REVIEWER: FINAL REVIEW DATE: DCP Focus Questions & Answers - Added on: QUESTION: ANSWER : PATIENT: HANNA PIERCE ENCOUNTER: [id number] MEDICAL RECORD#: [id number] ADMISSION DATE: 09/13/2020 DISCHARGE DATE: ATTENDING MD: EDIE JACOBS : AGE: 70 MARITAL STATUS: S DC PLAN ID: [id number] FACILITY: [facility] PRINTED ON: 09/29/20 11:10 CT All edits/amendments must be made on the electronic document DICTATION DATE: 09/29/20 111 FINANCIAL ACCOUNTANT: YENI 09/29/20 111 RPT#: [id number] DC DATE: STATUS: ADM IN [facility] [address] [place] [address] END OF REPORT
--- NOTE | 2020-09-29 12:09 | MORECARE ---
CASE MANAGEMENT DISCHARGE SUMMARY PATIENT: HANNA PIERCE UNIT: [id number] ADM DATE: 09/13/20 AGE: 70 : 52 SEX: F ROOM/BED: D.7597 AUTHOR: RYLIE,DOC PHYSICIAN: REFERRING PHYSICIAN: EDIE SIMONS MD DATE OF SERVICE: 09/29/20 Case Management Discharge Planning Summary COMMENTS ENTERED DATE: 09/29/20 12:03 CT COMMENT TYPE: Discharge Planning REVIEWER: Kassy [place] has declined HHS due to psychiatric issues and drug use. I have faxed clinical to [place]. CM will continue to follow and assist with discharge planning/needs. ENTERED DATE: 09/29/20 11:01 CT COMMENT TYPE: Discharge Planning REVIEWER: Kassy Sorto [facility] HAS DECLINED, NO AVAILABILITY. REFERRAL FAXED TO [place]. ENTERED DATE: 09/29/20 10:18 CT COMMENT TYPE: Discharge Planning REVIEWER: Kassy Sorto CM spoke again with patient concerning rehab, she declines. She consents to home health and [facility] for [facility] signed. States her GARRETT will drive her home on discharge. States she has oxygen with portability and nebulizer from [facility]. States she has "everything" including a shower bench, walker and cane. CM will fax referral to [facility]. ENTERED DATE: 09/23/20 0:38 CT COMMENT TYPE: Discharge Planning REVIEWER: Anaid Scott Late Entry 09/21/20 CM spoke with patient regarding rehab / snf. Patient states that she just wants to go home, CM asked how she was doing with therapy. Patient states not to well my feet want to slide out from under me. Patient states that her sister lives next door and will check on her. CM explained that her sister being next door and her being in the floor is not a good combination. CM asked patient to think about her options and CM will revisit later. CM looked at therapy notes they are recommending Rehab v/s SNF. Patient only walking 2-6 ft with mod assist. Patient also has OT and ST working with her. CM will continue to follow and assist as needed with discharge planning. DCP REVIEW SUMMARY ANTICIPATED D/C DATE: EXPECTED LOS : CASE STATUS: DCP Initiated INITIAL REVIEW: 09/21/2020 INITIAL REVIEWER: Anaid Scott FINAL DISCHARGE DISPOSITION: : FINAL REVIEWER: FINAL REVIEW DATE: DCP Focus Questions & Answers - Added on: QUESTION: ANSWER : PATIENT: HANNA PIERCE ENCOUNTER: [id number] MEDICAL RECORD#: [id number] ADMISSION DATE: 09/13/2020 DISCHARGE DATE: ATTENDING MD: EDIE JACOBS : AGE: 70 MARITAL STATUS: S DC PLAN ID: [id number] FACILITY: [facility] PRINTED ON: 09/29/20 12:09 CT All edits/amendments must be made on the electronic document DICTATION DATE: 09/29/201208 ORCHESTRA MUSICIAN: YENI 09/29/201208 RPT#: [id number] DC DATE: STATUS: ADM IN [facility] [address] [place] [address] END OF REPORT
[2020-09-29] MEDS ORDERED: LOPRESSOR25 MG PO (13:14)
[2020-09-29] MEDS ORDERED: ELIQUIS2.5 MG PO (13:14)
--- NOTE | 2020-09-29 13:55 | MORECARE ---
CASE MANAGEMENT DISCHARGE SUMMARY PATIENT: HANNA PIERCE UNIT: [id number] ADM DATE: 09/13/20 AGE: 70 : 52 SEX: F ROOM/BED: D.2137 AUTHOR: RYLIE,DOC PHYSICIAN: REFERRING PHYSICIAN: EDIE SIMONS MD DATE OF SERVICE: 09/29/20 Case Management Discharge Planning Summary COMMENTS ENTERED DATE: 09/29/20 13:42 CT COMMENT TYPE: Discharge Planning REVIEWER: Kassy Sorto [facility] does not take patient's insurance. I have faxed clinical and order to [facility] and spoke with Rhys. ENTERED DATE: 09/29/20 12:03 CT COMMENT TYPE: Discharge Planning REVIEWER: Kassy Adriennebettie [place] has declined HHS due to psychiatric issues and drug use. I have faxed clinical to [place]. will continue to follow and assist with discharge planning/needs. ENTERED DATE: 09/29/20 11:01 CT COMMENT TYPE: Discharge Planning REVIEWER: Kassy Macario [facility] HAS DECLINED, NO AVAILABILITY. REFERRAL FAXED TO [place]. ENTERED DATE: 09/29/20 10:18 CT COMMENT TYPE: Discharge Planning REVIEWER: Kassy Sorto CM spoke again with patient concerning rehab, she declines. She consents to home health and [facility] for [facility] signed. States her GARRETT will drive her home on discharge. States she has oxygen with portability and nebulizer from [facility]. States she has "everything" including a shower bench, walker and cane. CM will fax referral to [facility]. ENTERED DATE: 09/23/20 0:38 CT COMMENT TYPE: Discharge Planning REVIEWER: Anaid Scott Late Entry 09/21/20 CM spoke with patient regarding rehab / snf. Patient states that she just wants to go home, CM asked how she was doing with therapy. Patient states not to well my feet want to slide out from under me. Patient states that her sister lives next door and will check on her. CM explained that her sister being next door and her being in the floor is not a good combination. CM asked patient to think about her options and CM will revisit later. CM looked at therapy notes they are recommending Rehab v/s SNF. Patient only walking 2-6 ft with mod assist. Patient also has OT and ST working with her. CM will continue to follow and assist as needed with discharge planning. DCP REVIEW SUMMARY ANTICIPATED D/C DATE: EXPECTED LOS : CASE STATUS: DCP Initiated INITIAL REVIEW: 09/21/2020 INITIAL REVIEWER: Anaid Scott FINAL DISCHARGE DISPOSITION: : FINAL REVIEWER: FINAL REVIEW DATE: DCP Focus Questions & Answers - Added on: QUESTION: ANSWER : PATIENT: HANNA PIERCE ENCOUNTER: [id number] MEDICAL RECORD#: [id number] ADMISSION DATE: 09/13/2020 DISCHARGE DATE: ATTENDING MD: EDIE JACOBS : AGE: 70 MARITAL STATUS: S DC PLAN ID: [id number] FACILITY: [facility] PRINTED ON: 09/29/20 13:55 CT All edits/amendments must be made on the electronic document DICTATION DATE: 09/29/20 135 SENIOR RISK ANALYST: YENI 09/29/20 1355 RPT#: [id number] DC DATE: STATUS: ADM IN [facility] [address] [place] [address] END OF REPORT
--- NOTE | 2020-09-29 15:05 | NUR ---
NURSE CALLS HANNA PADRON TO VERIFY IT WAS OKAY TO TAKE TRIALYSIS OUT.
--- NOTE | 2020-09-29 15:07 | MORECARE ---
CASE MANAGEMENT DISCHARGE SUMMARY PATIENT: HANNA PIERCE UNIT: [id number] ADM DATE: 09/13/20 AGE: 70 : 52 SEX: F ROOM/BED: D.2137 AUTHOR: RYLIE,DOC PHYSICIAN: REFERRING PHYSICIAN: EDIE SIMONS MD DATE OF SERVICE: 09/29/20 Case Management Discharge Planning Summary COMMENTS ENTERED DATE: 09/29/20 14:57 CT COMMENT TYPE: Discharge Planning REVIEWER: Kassy Sorto Spoke with Rhys at [facility] and [facility] states they will accept the patient for home health. Home today with home health. ENTERED DATE: 09/29/20 13:42 CT COMMENT TYPE: Discharge Planning REVIEWER: Kassy Sorto [facility] does not take patient's insurance. I have faxed clinical and order to [facility] and spoke with Rhys. ENTERED DATE: 09/29/20 12:03 CT COMMENT TYPE: Discharge Planning REVIEWER: Kassy Sorto [place] has declined HHS due to psychiatric issues and drug use. I have faxed clinical to [place]. will continue to follow and assist with discharge planning/needs. ENTERED DATE: 09/29/20 11:01 CT COMMENT TYPE: Discharge Planning REVIEWER: Kassy Sorto [facility] H[facility] HAS DECLINED, NO AVAILABILITY. REFERRAL FAXED TO [place]. ENTERED DATE: 09/29/20 10:18 CT COMMENT TYPE: Discharge Planning REVIEWER: Kassy Sorto CM spoke again with patient concerning rehab, she declines. She consents to home health and [facility] for [facility] signed. States her GARRETT will drive her home on discharge. States she has oxygen with portability and nebulizer from [facility]. States she has "everything" including a shower bench, walker and cane. CM will fax referral to [facility]. ENTERED DATE: 09/23/20 0:38 CT COMMENT TYPE: Discharge Planning REVIEWER: Anaid Scott Late Entry 09/21/20 CM spoke with patient regarding rehab / snf. Patient states that she just wants to go home, CM asked how she was doing with therapy. Patient states not to well my feet want to slide out from under me. Patient states that her sister lives next door and will check on her. CM explained that her sister being next door and her being in the floor is not a good combination. CM asked patient to think about her options and CM will revisit later. CM looked at therapy notes they are recommending Rehab v/s SNF. Patient only walking 2-6 ft with mod assist. Patient also has OT and ST working with her. CM will continue to follow and assist as needed with discharge planning. [facility] REVIEW SUMMARY ANTICIPATED D/C DATE: EXPECTED LOS : CASE STATUS: DCP Initiated INITIAL REVIEW: 09/21/2020 INITIAL REVIEWER: Anaid Scott FINAL DISCHARGE DISPOSITION: : FINAL REVIEWER: FINAL REVIEW DATE: NMP Focus Questions & Answers - Added on: QUESTION: ANSWER : PATIENT: HANNA PIERCE ENCOUNTER: [id number] MEDICAL RECORD#: [id number] ADMISSION DATE: 09/13/2020 DISCHARGE DATE: ATTENDING MD: EDIE JACOBS : AGE: 70 MARITAL STATUS: S DC PLAN ID: [id number] FACILITY: [facility] PRINTED ON: 09/29/20 15:07 CT All edits/amendments must be made on the electronic document DICTATION DATE: 09/29/201506 EXPORT DOCUMENTS CLERK: YENI 09/29/201506 RPT#: [id number] NM DATE: STATUS: ADM IN [facility] [address] [place] [address] END OF REPORT
--- NOTE | 2020-09-29 15:28 | NUR ---
NURSE GIVES PATIENT DC INSTRUCTIONS AND REMINDS PT OF FOLLOW UP APPOINTMENTS, AND NEW MEDICATIONS. PATIENT DENIES QUESTIONS. NURSE ALSO TAKES PATIENT'S TRIALYSIS OUT OF HER RIGHT IJ. PRESSURE APPLIED AND WAFER, TEGUDERM PLACED. PATIENT EDU ON LYING FLAT FOR 10 MORE MINUTES. PATIENT VERBS UNDERSTANDING. CALL LIGHT IN REACH.
--- NOTE | 2020-09-29 15:31 | NUR ---
NURSE TALKS WITH PATIENT'S FAMILY AND LETS THEM KNOW SHE IS READY TO GO HOME.
--- NOTE | 2020-09-29 16:37 | NUR ---
PATIENT BEING WHEELED OUT AT THIS TIME. DAUGHTER DRIVING HER HOME. BELONGINGS IN HAND. NAD NOTED.
--- NOTE | 2020-09-29 18:24 | NUR ---
OT NOTE: PT COMPLETED BED MOB WITH SBA. PT COMPLETED ADL MOB WITH CGA-MIN A. PT COMPLETED HAND AND FACE HYGIENE WITH CGA AT SINK LEVEL. PT COMPLETED DEMETRIUS/DOFF SOCKS WITH SBA. PT COMPLETED TOILETING WITH SBA-CGA FOR TOILET HYGIENE. PT REQUIRED CGA FOR GARMENT MANAGEMENT. [id number] THANK YOU,REHANA STEWART
--- NOTE | 2020-09-29 19:24 | MORECARE ---
CASE MANAGEMENT DISCHARGE SUMMARY PATIENT: HANNA PIERCE UNIT: [id number] ADM DATE: 09/13/20 AGE: 70 : 52 SEX: F ROOM/BED: D.2137 AUTHOR: RYLIE,DOC PHYSICIAN: REFERRING PHYSICIAN: EDIE SIMONS MD DATE OF SERVICE: 09/29/20 Case Management Discharge Planning Summary COMMENTS ENTERED DATE: 09/29/20 14:57 CT COMMENT TYPE: Discharge Planning REVIEWER: Kassy Sorto Spoke with Rhys at [facility] and [facility] states they will accept the patient for home health. Home today with home health. ENTERED DATE: 09/29/20 13:42 CT COMMENT TYPE: Discharge Planning REVIEWER: Kassy Sorto [facility] does not take patient's insurance. I have faxed clinical and order to [facility] and spoke with Rhys. ENTERED DATE: 09/29/20 12:03 CT COMMENT TYPE: Discharge Planning REVIEWER: Kassy Sorto [place] has declined HHS due to psychiatric issues and drug use. I have faxed clinical to [place]. will continue to follow and assist with discharge planning/needs. ENTERED DATE: 09/29/20 11:01 CT COMMENT TYPE: Discharge Planning REVIEWER: Kassy Sorto [facility] HHS HAS DECLINED, NO AVAILABILITY. REFERRAL FAXED TO [place]. ENTERED DATE: 09/29/20 10:18 CT COMMENT TYPE: Discharge Planning REVIEWER: Kassy Sorto CM spoke again with patient concerning rehab, she declines. She consents to home health and [facility] for [facility]. States her GARRETT will drive her home on discharge. States she has oxygen with portability and nebulizer from [facility]. States she has "everything" including a shower bench, walker and cane. CM will fax referral to [facility]. ENTERED DATE: 09/23/20 0:38 CT COMMENT TYPE: Discharge Planning REVIEWER: Anaid Scott Late Entry 09/21/20 CM spoke with patient regarding rehab / snf. Patient states that she just wants to go home, CM asked how she was doing with therapy. Patient states not to well my feet want to slide out from under me. Patient states that her sister lives next door and will check on her. CM explained that her sister being next door and her being in the floor is not a good combination. CM asked patient to think about her options and CM will revisit later. CM looked at therapy notes they are recommending Rehab v/s SNF. Patient only walking 2-6 ft with mod assist. Patient also has OT and ST working with her. CM will continue to follow and assist as needed with discharge planning. [facility] REVIEW SUMMARY ANTICIPATED D/C DATE: EXPECTED LOS : CASE STATUS: DCP Initiated INITIAL REVIEW: 09/21/2020 INITIAL REVIEWER: Anaid Scott FINAL DISCHARGE DISPOSITION: : FINAL REVIEWER: FINAL REVIEW DATE: MDP Focus Questions & Answers - Added on: QUESTION: ANSWER : PATIENT: HANNA PIERCE ENCOUNTER: [id number] MEDICAL RECORD#: [id number] ADMISSION DATE: 09/13/2020 DISCHARGE DATE: ATTENDING MD: EDIE JACOBS : AGE: 70 MARITAL STATUS: S DC PLAN ID: [id number] FACILITY: [facility] PRINTED ON: 09/29/20 19:24 CT All edits/amendments must be made on the electronic document DICTATION DATE: 09/29/201923 LEACH CELL OPERATOR: YENI 09/29/201923 RPT#: [id number] MD DATE: STATUS: ADM IN [facility] [address] [place] [address] END OF REPORT
--- NOTE | 2020-09-30 08:48 | MORECARE ---
CASE MANAGEMENT DISCHARGE SUMMARY PATIENT: HANNA PIERCE UNIT: [id number] ADM DATE: 09/13/20 AGE: 70 : 52 SEX: F ROOM/BED: D.2137 AUTHOR: RYLIE,DOC PHYSICIAN: REFERRING PHYSICIAN: EDIE SIMONS MD DATE OF SERVICE: 09/30/20 Case Management Discharge Planning Summary COMMENTS ENTERED DATE: 09/29/20 14:57 CT COMMENT TYPE: Discharge Planning REVIEWER: Kassy Sorto Spoke with Rhys at [facility] and [facility] states they will accept the patient for home health. Home today with home health. ENTERED DATE: 09/29/20 13:42 CT COMMENT TYPE: Discharge Planning REVIEWER: [facility] I have faxed clinical and order to [facility] and spoke with Rhys. ENTERED DATE: 09/29/20 12:03 CT COMMENT TYPE: Discharge Planning REVIEWER: Kassy Sorto [place] has declined HHS due to psychiatric issues and drug use. I have faxed clinical to [place]. will continue to follow and assist with discharge planning/needs. ENTERED DATE: 09/29/20 11:01 CT COMMENT TYPE: Discharge Planning REVIEWER: Kassy Sorto [facility] HAS DECLINED, NO AVAILABILITY. REFERRAL FAXED TO [place]. ENTERED DATE: 09/29/20 10:18 CT COMMENT TYPE: Discharge Planning REVIEWER: Kassy Sorto CM spoke again with patient concerning rehab, she declines. She consents to home health and [facility] for [facility] signed. States her GARRETT will drive her home on discharge. States she has oxygen with portability and nebulizer from [facility]. States she has "everything" including a shower bench, walker and cane. CM will fax referral to [facility]. ENTERED DATE: 09/23/20 0:38 CT COMMENT TYPE: Discharge Planning REVIEWER: Anaid Scott Late Entry 09/21/20 CM spoke with patient regarding rehab / snf. Patient states that she just wants to go home, CM asked how she was doing with therapy. Patient states not to well my feet want to slide out from under me. Patient states that her sister lives next door and will check on her. CM explained that her sister being next door and her being in the floor is not a good combination. CM asked patient to think about her options and CM will revisit later. CM looked at therapy notes they are recommending Rehab v/s SNF. Patient only walking 2-6 ft with mod assist. Patient also has OT and ST working with her. CM will continue to follow and assist as needed with discharge planning. [facility] REVIEW SUMMARY ANTICIPATED D/C DATE: EXPECTED LOS : CASE STATUS: DCP Initiated INITIAL REVIEW: 09/21/2020 INITIAL REVIEWER: Anaid Scott FINAL DISCHARGE DISPOSITION: : FINAL REVIEWER: FINAL REVIEW DATE: AKP Focus Questions & Answers - Added on: QUESTION: ANSWER : PATIENT: HANNA PIERCE ENCOUNTER: [id number] MEDICAL RECORD#: [id number] ADMISSION DATE: 09/13/2020 DISCHARGE DATE: 09/29/2020 ATTENDING MD: EDIE JCAOBS : AGE: 70 MARITAL STATUS: S DC PLAN ID: [id number] FACILITY: [facility] PRINTED ON: 09/30/20 8:48 CT All edits/amendments must be made on the electronic document DICTATION DATE: 09/30/20847 WINCH OPERATOR: YENI 09/30/20847 RPT#: [id number] DC DATE:09/29/20 STATUS: DIS IN [facility] [address] [place] [address] END OF REPORT
--- NOTE | 2020-10-02 16:43 | MORECARE ---
CASE MANAGEMENT DISCHARGE SUMMARY PATIENT: HANNA PIERCE UNIT: [id number] ADM DATE: 09/13/20 AGE: 70 : 52 SEX: F ROOM/BED: D.1246 AUTHOR: RYLIE,DOC PHYSICIAN: REFERRING PHYSICIAN: EDIE SIMONS MD DATE OF SERVICE: 10/02/20 Case Management Discharge Planning Summary CT Patient Name: HANNA PIERCE Attending MD : EDIE DAVIS Medical Record: [id number] Encounter : [id number] Facility : [address] [place] [address] Medical Admission Date : 123: Center Discharge Date : 09/29/[address] [place] [address] Date of : DC Plan ID : [id number] Age/Sex/Martia : 70/ F/S Printed on : 10/02/20 16:41 CT DCP Review Details Anticipated D/C: Expected LOS : Case Status : COMPLET - Initial Reviewe: [id number] - Anaid Scott Initial Review: 09/21/2020 Planned Disposi: 06 - Discharged/Trans to Home [facility] of [facility] in Anticipation of Skilled Care Final Discharge: 06 - Discharged/Trans to Home [facility] of [facility] in Anticipation of Skilled Care Final Reviewer : [id number] : Kassy Sorto Final Review : 10/02/[address] Entered Date Type Reviewer 09/29/20 14:57 CT Discharge Planning Kassy Sorto Comment Spoke with Rhys at [facility] and [facility] states they will accept the patient for home health. Home today with home health. 09/29/20 13:42 CT Discharge Planning Kassy Sorto Comment [facility] does not take patient's insurance. I have faxed clinical and order to [facility] and spoke with Rhys. 09/29/20 12:03 CT Discharge Planning Kassy Sorto Comment [place] has declined HHS due to psychiatric issues and drug use. I have faxed clinical to [place]. CM will continue to follow and assist with discharge planning/needs. 09/29/20 11:01 CT Discharge Planning Kassy Sorto Comment [facility] HAS DECLINED, NO AVAILABILITY. REFERRAL FAXED TO [place]. 09/29/20 10:18 CT Discharge Planning Kassy Sorto Comment CM spoke again with patient concerning rehab, she declines. She consents to home health and [facility] for [facility]. States her GARRETT will drive her home on discharge. States she has oxygen with portability and nebulizer from [facility]. States she has "everything" including a shower bench, walker and cane. CM will fax referral to [facility]. 09/23/20 0:38 CT Discharge Planning Anaid Scott Comment Late Entry 09/21/20 CM spoke with patient regarding rehab / snf. Patient states that she just wants to go home, CM asked how she was doing with therapy. Patient states not to well my feet want to slide out from under me. Patient states that her sister lives next door and will check on her. CM explained that her sister being next door and her being in the floor is not a good combination. CM asked patient to think about her options and CM will revisit later. CM looked at therapy notes they are recommending Rehab v/s SNF. Patient only walking 2-6 ft with mod assist. Patient also has OT and ST working with her. CM will continue to follow and assist as needed with discharge planning. RIP Focus Questions & Answers [facility] HANNA PIERCE MR#: [id number] /Age/Sex/[id number] /70/F /S Attending Physician Name: MUNIR SIMONS [id number] Patient Account:[id number] [facility] Page -1 of 1 All edits/amendments must be made on the electronic document DICTATION DATE: 10/02/201640 IMAGING CLERK: YENI 10/02/201640 RPT#: [id number] DC DATE:09/29/20 STATUS: DIS IN [facility] [address] [place] [address] END OF REPORT
== END 2020-09-29 14:58 | disposition home health service (06) | DRG 871 ==
LOC: D.ER 21:38 → D.M2 23:33 → D.ICU 23:33 → D.M2 09-17 17:32
PROVIDERS: Emergency Medicine; Internal Medicine Nephrology; Internal Medicine Pulmonary Disease; ADMIT Legal Medicine; ATTEND Legal Medicine
PROC: 0BH17EZ Insertion of Endotracheal Airway into Trachea, Via Natural or Artificial Opening (ICD-10-PCS; principal; 2020-09-13)
PROC: 5A1945Z Respiratory Ventilation, 24-96 Consecutive Hours (ICD-10-PCS; 2020-09-13)
PROC: 05HM33Z Insertion of Infusion Device into Right Internal Jugular Vein, Percutaneous Approach (ICD-10-PCS; 2020-09-16)
PROC: B543ZZA Ultrasonography of Right Jugular Veins, Guidance (ICD-10-PCS; 2020-09-16)
DX: A41.9 Sepsis, unspecified organism (principal); J96.02 Acute respiratory failure with hypercapnia; G92 Toxic encephalopathy; I50.23 Acute on chronic systolic (congestive) heart failure; N17.9 Acute kidney failure, unspecified; I48.20 Chronic atrial fibrillation, unspecified; T42.4X1A Poisoning by benzodiazepines, accidental (unintentional), initial encounter; T40.601A Poisoning by unspecified narcotics, accidental (unintentional), initial encounter; J43.9 Emphysema, unspecified; G89.29 Other chronic pain; E87.5 Hyperkalemia; F32.9 Major depressive disorder, single episode, unspecified; F41.9 Anxiety disorder, unspecified; K21.9 Gastro-esophageal reflux disease without esophagitis; I10 Essential (primary) hypertension; E87.6 Hypokalemia; E83.42 Hypomagnesemia

== ENCOUNTER 2020-11-03 11:41 | Inpatient (IN) | payer MEDICARE ==
[~2020-11-03] VITALS: Ht 165.1 cm; Wt 40.8 kg
[2020-11-03] VITALS (8 sets, daily range): BP systolic 130–152; BP diastolic 60–81; BMI 15.0
[~2020-11-03 11:41] MED LIST changes: +ELIQUIS2.5 MG PO; +LOPRESSOR25 MG PO
[2020-11-03 12:26] LABS: BASOPHILS 0.5 % (0-2); EOSINOPHILS 2.2 % (0-7); HEMATOCRIT 37.2 % (36.0-48.0); HEMOGLOBIN 11.6 g/dL (12-16); IMMATURE GRANULOCYTES 0.3 % (0-5); LYMPHOCYTE ABS# 3.13 10x3/uL (1.18-3.74); LYMPHOCYTES 30.5 % (15-50); MCH 28.8 pg (26.0-34.0); MCHC 31.2 g/dL (31.0-37.0); MCV 92.3 fL (80.0-100.0); MONOCYTES 11.4 % (2-11); NEUTROPHIL ABS# 5.65 10x3/uL (1.56-6.13); NEUTROPHILS 55.1 % (40-80); RBC 4.03 10x6/uL (4.00-5.40); RDW 16.4 % (11.5-14.5); WBC 10.3 10x3/uL (4.8-10.8)
[2020-11-03 12:28] LABS: CALC OSMOLALITY 270 mosm/kg (275-300); CALCIUM 9.4 mg/dL (8.5-10.1); CARBON DIOXIDE 30.6 mmol/L (21.0-32.0); CHLORIDE - SERUM 96 mmol/L (98-107); GLUCOSE 91 mg/dL (74-106); PLATELET COUNT 304 10x3/uL (130-400); POTASSIUM - SERUM 4.6 mmol/L (3.5-5.1); SODIUM 134 mmol/L (136-145); UREA NITROGEN 21 mg/dL (7-18); eGFR NON AFRICAN AMERICAN 58 mL/min (90-120)
[2020-11-03 12:37] LABS: ALBUMIN 3.1 g/dL (3.4-5.0); ALKALINE PHOSPHATASE 110 U/L (30-120); ALT (SGPT) 13 U/L (10-68); AMYLASE - SERUM 114 U/L (25-115); BILIRUBIN - TOTAL 0.25 mg/dL (0.2-1.3); LIPASE 470 U/L (73-393); TROPONIN-I < 0.017 ng/mL (0.000-0.060)
[2020-11-03 13:56] LABS: BACTERIA FEW HPF (NONE SEEN); BILIRUBIN NEGATIVE (NEGATIVE); KETONE NEGATIVE (NEGATIVE); NITRITE NEGATIVE (NEGATIVE); SQUAMOUS EPITHELIAL 0-5 HPF (0-4); UROBILINOGEN NORMAL mg/dL (< 2)
--- NOTE | 2020-11-04 01:36 | NUR ---
I have reviewed this patient and I concur with the Shift Assessment completed by the Licensed Practical Nurse today this shift.
--- NOTE | 2020-11-04 02:47 | NUR ---
PT TONE ARTIST APPRENTICE LIGHT COMPLAINT OF PAIN IN HER ABDOMEN AND STOMACH, MED WAS GIVEN.WILL CONT TO MONITOR
[2020-11-04 04:00] VITALS: BP 146/76
[2020-11-04 06:21] LABS: BASOPHILS 0.3 % (0-2); EOSINOPHILS 1.6 % (0-7); HEMATOCRIT 34.8 % (36.0-48.0); HEMOGLOBIN 10.7 g/dL (12-16); IMMATURE GRANULOCYTES 0.2 % (0-5); LYMPHOCYTE ABS# 2.48 10x3/uL (1.18-3.74); LYMPHOCYTES 20.6 % (15-50); MCH 28.6 pg (26.0-34.0); MCHC 30.7 g/dL (31.0-37.0); MONOCYTES 13.3 % (2-11); NEUTROPHIL ABS# 7.71 10x3/uL (1.56-6.13); PLATELET COUNT 281 10x3/uL (130-400); RBC 3.74 10x6/uL (4.00-5.40); RDW 16.2 % (11.5-14.5); WBC 12.1 10x3/uL (4.8-10.8)
[2020-11-04 06:54] LABS: ALBUMIN 2.8 g/dL (3.4-5.0); ANION GAP 12.2 mmol/L (8-16); BILIRUBIN - TOTAL 0.37 mg/dL (0.2-1.3); CALCIUM 8.7 mg/dL (8.5-10.1); CARBON DIOXIDE 29.3 mmol/L (21.0-32.0); CREATININE - SERUM 0.9 mg/dL (0.6-1.3); POTASSIUM - SERUM 4.5 mmol/L (3.5-5.1); PROTEIN - SERUM 5.8 g/dL (6.4-8.2)
--- NOTE | 2020-11-04 07:09 | NUR ---
PATIENT IS WITHOUT DISTRESS.SLEEPING WITH EYES CLOSED
[2020-11-04 09:18] VITALS: BP 111/65
--- NOTE | 2020-11-04 09:49 | NUR ---
PATIENT DECLINED NICOTINE PATCH, STATED SHE CAN'T WAIT TO GET CATHETER OUT SO SHE CAN GO OUTSIDE TO SMOKE, EDUCATED PATIENT ON DANGER OF SMOKING WITH OXYGEN WELL SMOKING POLICY AND HOSPITAL. NO OTHER NEEDS AT THIS TIME. CONTINUE WITH PLAN OF CARE
[2020-11-04 12:37] VITALS: BP 132/65
[2020-11-04 13:44] VITALS: Ht 165.1 cm; Wt 40.8 kg
[2020-11-04 16:46] VITALS: BP 131/70
[2020-11-04 20:00] VITALS: BP 127/52
--- NOTE | 2020-11-04 23:03 | NUR ---
PT WAS SMOKING IN THE BATHROOM AFTER SHE WAS TOLD SHE EARLIER DURING THE DAY SHE COULD NOT SMOKE AT ALL IN THE HOSPITAL. PT STATES SHE WAS SMOKING IN THE BATHROOM FAR FROM HER OXYGEN. CIGARRETES REMOVED FROM THE ROOM AND IN LOCK BOX. CNURSE INFORMED.
[2020-11-05] VITALS: BP 112/52
[2020-11-05 04:00] VITALS: BP 124/59
[2020-11-05 06:20] LABS: BASOPHILS 0.2 % (0-2); EOSINOPHILS 0 % (0-7); HEMATOCRIT 30.7 % (36.0-48.0); HEMOGLOBIN 9.4 g/dL (12-16); IMMATURE GRANULOCYTES 0.2 % (0-5); LYMPHOCYTE ABS# 0.62 10x3/uL (1.18-3.74); LYMPHOCYTES 11.7 % (15-50); MCH 28.6 pg (26.0-34.0); MCHC 30.6 g/dL (31.0-37.0); MCV 93.3 fL (80.0-100.0); MEAN PLATELET VOLUME 10.8 fL (7.4-10.4); MONOCYTES 1.9 % (2-11); NEUTROPHIL ABS# 4.57 10x3/uL (1.56-6.13); PLATELET COUNT 255 10x3/uL (130-400); RBC 3.29 10x6/uL (4.00-5.40); RDW 15.5 % (11.5-14.5)
[2020-11-05 06:22] LABS: WBC 5.3 10x3/uL (4.8-10.8)
[2020-11-05 06:28] LABS: ALBUMIN 2.3 g/dL (3.4-5.0); ALKALINE PHOSPHATASE 84 U/L (30-120); BILIRUBIN - TOTAL 0.24 mg/dL (0.2-1.3); CALCIUM 8.9 mg/dL (8.5-10.1); CARBON DIOXIDE 27.7 mmol/L (21.0-32.0); CHLORIDE - SERUM 103 mmol/L (98-107); CREATININE - SERUM 0.7 mg/dL (0.6-1.3); GLUCOSE 118 mg/dL (74-106); POTASSIUM - SERUM 4.9 mmol/L (3.5-5.1); PROTEIN - SERUM 5.2 g/dL (6.4-8.2); SODIUM 137 mmol/L (136-145); eGFR NON AFRICAN AMERICAN 88 mL/min (90-120)
[2020-11-05 06:37] LABS: ALT (SGPT) 9 U/L (10-68); CALC OSMOLALITY 273 mosm/kg (275-300); UREA NITROGEN 10 mg/dL (7-18)
--- NOTE | 2020-11-05 07:04 | NUR ---
I have reviewed this patient and I concur with the Shift Assessment completed by the Licensed Practical Nurse today this shift.
[2020-11-05 09:41] VITALS: BP 123/59
--- NOTE | 2020-11-05 11:44 | NUR ---
PATIENT C/O ITCHING ALL OVER, HAD ADMNISTERED PRN BENADRYL AT 0830, TOLD PATIENT SHE HAD 2 HOURS BEFORE I CAN ADMINISTER NEXT DOSE, PATIENT THEN ASKED FOR STEROIDS. ONE DOSE ORDERED YESTERDAY, TOLD HER I WILL SPEAK WITH DOCTORS. NO OTHER ENEDS AT THIS TIME. CONTINUE WITH PLAN OF CARE
[2020-11-05 12:58] VITALS: BP 119/69
--- NOTE | 2020-11-05 13:28 | NUR ---
Nutrition follow-up: Diet order: Regular PO intake fair at this time; pt has been smoking in the bathroom Labs reviewed Wt: 90# Will continue to provide food choices and honor food preferences. RDN will order Ensure with meals to increase kcal/protein intake RDN follow-up on progress toward nutrition goals: 11/10/20
--- NOTE | 2020-11-05 14:26 | NUR ---
PATIENT ABLE TO GET UP TO BEDSIDE AND STAND WITH SBA. PATIENT WALKED IN [place] 250 FEET WITH CGA WHILE PUSHING IV POLE.
--- NOTE | 2020-11-05 16:04 | NUR ---
I have reviewed this patient and I concur with the Shift Assessment completed by the Licensed Practical Nurse today this shift.
[2020-11-05 17:29] VITALS: BP 101/65
[2020-11-05 21:12] VITALS: BP 112/61
--- NOTE | 2020-11-05 21:30 | NUR ---
WATCHING TV WITH NO COMPALITNS VOICED. RESP UNALBORED. CARR PATENT AND DRAINING LEXIE URINE. CL IN REACH.
--- NOTE | 2020-11-06 02:41 | NUR ---
I have reviewed this patient and I concur with the Shift Assessment completed by the Licensed Practical Nurse today this shift.
[2020-11-06 05:08] LABS: BASOPHILS 0.1 % (0-2); EOSINOPHILS 0.4 % (0-7); HEMATOCRIT 31.3 % (36.0-48.0); HEMOGLOBIN 9.3 g/dL (12-16); IMMATURE GRANULOCYTES 0.4 % (0-5); LYMPHOCYTE ABS# 0.51 10x3/uL (1.18-3.74); LYMPHOCYTES 6.2 % (15-50); MCH 28.2 pg (26.0-34.0); MCHC 29.7 g/dL (31.0-37.0); MCV 94.8 fL (80.0-100.0); MEAN PLATELET VOLUME 11.1 fL (7.4-10.4); MONOCYTES 1.3 % (2-11); NEUTROPHIL ABS# 7.57 10x3/uL (1.56-6.13); NEUTROPHILS 91.6 % (40-80); PLATELET COUNT 235 10x3/uL (130-400); RDW 16.3 % (11.5-14.5)
[2020-11-06 05:11] LABS: WBC 8.3 10x3/uL (4.8-10.8)
[2020-11-06 05:37] LABS: ALBUMIN 2.5 g/dL (3.4-5.0); ANION GAP 14.4 mmol/L (8-16); BILIRUBIN - TOTAL 0.22 mg/dL (0.2-1.3); CALCIUM 8.9 mg/dL (8.5-10.1); CARBON DIOXIDE 26.5 mmol/L (21.0-32.0); POTASSIUM - SERUM 4.9 mmol/L (3.5-5.1); PROTEIN - SERUM 5.4 g/dL (6.4-8.2)
[2020-11-06 05:46] LABS: CREATININE - SERUM 0.9 mg/dL (0.6-1.3)
[2020-11-06 05:56] VITALS: BP 123/59
[2020-11-06 09:55] VITALS: BP 148/80
[2020-11-06 12:56] VITALS: BP 132/57
[2020-11-06 18:16] VITALS: BP 130/87
[2020-11-06 20:52] VITALS: BP 141/60
[2020-11-07 01:04] VITALS: BP 132/60
--- NOTE | 2020-11-07 01:28 | NUR ---
I have reviewed this patient and I concur with the Shift Assessment completed by the Licensed Practical Nurse today this shift.
[2020-11-07 05:25] VITALS: BP 159/66
[2020-11-07 06:39] LABS: BASOPHILS 0.1 % (0-2); EOSINOPHILS 0 % (0-7); HEMATOCRIT 30.1 % (36.0-48.0); HEMOGLOBIN 9.3 g/dL (12-16); IMMATURE GRANULOCYTES 0.3 % (0-5); LYMPHOCYTE ABS# 0.76 10x3/uL (1.18-3.74); LYMPHOCYTES 6.7 % (15-50); MCH 28.8 pg (26.0-34.0); MCHC 30.9 g/dL (31.0-37.0); MCV 93.2 fL (80.0-100.0); MEAN PLATELET VOLUME 11.4 fL (7.4-10.4); MONOCYTES 4.6 % (2-11); NEUTROPHIL ABS# 10.07 10x3/uL (1.56-6.13); NEUTROPHILS 88.3 % (40-80); RBC 3.23 10x6/uL (4.00-5.40); RDW 16.3 % (11.5-14.5)
[2020-11-07 06:41] LABS: PLATELET COUNT 299 10x3/uL (130-400); WBC 11.4 10x3/uL (4.8-10.8)
[2020-11-07 07:12] LABS: ALBUMIN 2.6 g/dL (3.4-5.0); ANION GAP 12.1 mmol/L (8-16); BILIRUBIN - TOTAL 0.16 mg/dL (0.2-1.3); CALCIUM 9.3 mg/dL (8.5-10.1); CARBON DIOXIDE 29.3 mmol/L (21.0-32.0); POTASSIUM - SERUM 5.4 mmol/L (3.5-5.1)
[2020-11-07 11:28] VITALS: BP 122/40
[2020-11-07] MEDS ORDERED: FLOMAX0.4 MG PO (15:13)
[2020-11-07] MEDS ORDERED: NICODERM CQ1 EAC3 TRANSDERM (15:13)
[2020-11-07] MEDS ORDERED: MUCINEX600 MG PO (15:14)
[2020-11-07] MEDS ORDERED: TESSALON PERLE100 MG PO (15:14)
[2020-11-07] MEDS ORDERED: PERFOROMIS20 MCG/21 INH (15:14)
[2020-11-07] MEDS ORDERED: IPRAT-ALBUT 0.5-3 ML UPD (15:14)
[2020-11-07] MEDS ORDERED: ZITHROMAX250 MG PO (15:15)
[2020-11-07] MEDS ORDERED: FLUCONAZOLE100 MG PO (15:15)
[2020-11-07] MEDS ORDERED: PREDNISONE10 MG PO (15:15)
[2020-11-07] MEDS ORDERED: PROSCAR5 MG PO (15:15)
[2020-11-07] MEDS ORDERED: OMNICEF300 MG PO (15:15)
--- NOTE | 2020-11-07 16:48 | MORECARE ---
CASE MANAGEMENT DISCHARGE SUMMARY PATIENT: HANNA PIERCE UNIT: [id number] ADM DATE: 11/03/20 AGE: 70 : 52 SEX: F ROOM/BED: [facility] AUTHOR: RYLIE,DOC PHYSICIAN: REFERRING PHYSICIAN: ANGEL ESCALANTE MD DATE OF SERVICE: 11/07/20 Case Management Discharge Planning Summary DCP REVIEW SUMMARY ANTICIPATED D/C DATE: 11/07/2020 EXPECTED LOS : 4 CASE STATUS: DCP Initiated INITIAL REVIEW: 11/03/2020 INITIAL REVIEWER: Alejandro Davidson FINAL DISCHARGE DISPOSITION: : FINAL REVIEWER: FINAL REVIEW DATE: DCP Focus Questions & Answers QUESTION: ANSWER : PATIENT: HANNA PIERCE ENCOUNTER: [id number] MEDICAL RECORD#: [id number] ADMISSION DATE: 11/03/2020 DISCHARGE DATE: ATTENDING MD: ANGEL ABARCA : AGE: 70 MARITAL STATUS: S DC PLAN ID: [id number] FACILITY: [facility] PRINTED ON: 11/07/20 16:48 CT All edits/amendments must be made on the electronic document DICTATION DATE: 11/07/201647 TECHNOLOGY EDUCATION TEACHER: DM 11/07/201647 RPT#: [id number] DC DATE: STATUS: ADM IN [facility] [address] [place] [address] END OF REPORT
--- NOTE | 2020-11-07 16:59 | MORECARE ---
CASE MANAGEMENT DISCHARGE SUMMARY PATIENT: HANNA PIERCE UNIT: [id number] ADM DATE: 11/03/20 AGE: 70 : 52 SEX: F ROOM/BED: D.2235 AUTHOR: JERICHO YOUNGBLOOD PHYSICIAN: REFERRING PHYSICIAN: ANGEL ESCALANTE MD DATE OF SERVICE: 11/07/20 Case Management Discharge Planning Summary COMMENTS ENTERED DATE: 11/07/20 16:49 CT COMMENT TYPE: Discharge Planning REVIEWER: Alejandro Davidson CM met with patient to complete DC plan and to evaluate needs. Patient lives alone with strong support from her sister, Lizette Caro, . Patient stated that her home is safe and has electricity and running water. Patient stated that the home has 3 steps to enter and she is able to manage the steps without difficulty. Patient stated that she has no problems paying for medications and she fills her medications at [facility] on [address]. Patient stated that her primary care is with Mandie Rivas APN. At discharge, the patient plans to return home and feels this is a safe discharge. CM discussed availability of home health, rehab services, and medical equipment. Patient declined SNF, IPR, and DME. Patient stated she has a Cane, Walker, and Oxygen (through [facility]). Patient would like [facility] services, with [employer]. WILLI signed and placed in chart. CM spoke with Wendy who stated that [facility] Medicare insurance will have to be checked before SOC. Patient voiced no other needs at this time and is satisfied with DC plan. Transportation provider at discharge will be with her niece, Shruthi Caro, . DC IMM delivered, explained, signed by the patient, and placed in chart. Signed form also left with the patient. CM will continue to follow and will assist as needed with dc plans/needs. DCP REVIEW SUMMARY ANTICIPATED D/C DATE: 11/07/2020 EXPECTED LOS : 4 CASE STATUS: DCP Initiated INITIAL REVIEW: 11/03/2020 INITIAL REVIEWER: Alejandro Davidson FINAL DISCHARGE DISPOSITION: : FINAL REVIEWER: FINAL REVIEW DATE: DCP Focus Questions & Answers DCP Evaluation QUESTION: ANSWER Family / Caregiver's ability to cope with chronic illness: : a. Adequate (ability to meet patient's medical needs, ensures patient attends medical appts.) Patient and/or caregiver agree upon recommended discharge plan? : Yes Patient gives permission to discuss discharge plans with: (name, relationship and number) : sisterLizette, Patient's ability to cope with chronic illness : d. No chronic illness Patient's current cognitive status: : *Oriented to person, place, situation, time and present Family / Caregiver's ability to cope with chronic illness: : a. Adequate (ability to meet patient's medical needs, ensures patient attends medical appts.) Does the patient have the ability to pay for or attain post discharge needs / services? : Yes Physical Status: : Independent with ADL's Functional screen assessment: : Basic needs can adequately be met by self Living Arrangements: : Home Alone with Support Is there a likelihood that the patient will require additional services to return to the preadmission environment? : No Equipment needed for post hospitalization: : None Patient with capacity for self-care or can be cared for in same environment as prior to hospitalization? : Yes Baseline cognitive status: : *Oriented to person, place, situation, time and present Physical environment modification needed / anticipated for discharge: : No Medication Management: : Patient states can read and understand medication labels Medication Management: : Patient states can afford medications Pharmacy name(s): : [facility] [place] Does Patient have transportation to get home and to follow-up medical appointments when discharged from the hospital? : Yes Would patient like to participate in any Care Coordination programs (if applicable): : Not applicable Does the patient have electricity at home? : Yes Does the patient have running water in their house? : Yes Equipment in use: : Walker - Rolling Equipment in use: : Cane - Single Leg Other Equipment comments: : Oxygen Equipment agency name and contact information: : [facility] Mental health screen: : No mental health history DCP Re-evaluation QUESTION: ANSWER Would patient like to participate in any Care Coordination programs (if applicable): : Not applicable PATIENT: HANNA PIERCE ENCOUNTER: [id number] MEDICAL RECORD#: [id number] ADMISSION DATE: 11/03/2020 DISCHARGE DATE: ATTENDING MD: ANGEL ABARCA : AGE: 70 MARITAL STATUS: S DC PLAN ID: [id number] FACILITY: [facility] PRINTED ON: 11/07/20 16:59 CT All edits/amendments must be made on the electronic document DICTATION DATE: 11/07/201658 FISHER TROT LINE: YENI 11/07/201658 RPT#: [id number] [place] DATE: STATUS: ADM IN [facility] [address] [place] [address] END OF REPORT
--- NOTE | 2020-11-09 10:34 | MORECARE ---
CASE MANAGEMENT DISCHARGE SUMMARY PATIENT: HANNA PIERCE UNIT: [id number] ADM DATE: 11/03/20 AGE: 70 : 52 SEX: F ROOM/BED: D.2235 AUTHOR: JERICHO YOUNGBLOOD PHYSICIAN: REFERRING PHYSICIAN: ANGEL ESCALANTE MD DATE OF SERVICE: 11/09/20 Case Management Discharge Planning Summary COMMENTS ENTERED DATE: 11/07/20 16:49 CT COMMENT TYPE: Discharge Planning REVIEWER: Alejandro Davidson CM met with patient to complete DC plan and to evaluate needs. Patient lives alone with strong support from her sister, Lizette Caro, . Patient stated that her home is safe and has electricity and running water. Patient stated that the home has 3 steps to enter and she is able to manage the steps without difficulty. Patient stated that she has no problems paying for medications and she fills her medications at [facility] on [address]. Patient stated that her primary care is with Mandie Rivas APN. At discharge, the patient plans to return home and feels this is a safe discharge. CM discussed availability of home health, rehab services, and medical equipment. Patient declined SNF, IPR, and DME. Patient stated she has a Cane, Walker, and Oxygen (through [facility]). Patient would like [facility] services, with [employer]. WILLI signed and placed in chart. CM spoke with Wendy who stated that [facility] Medicare insurance will have to be checked before SOC. Patient voiced no other needs at this time and is satisfied with DC plan. Transportation provider at discharge will be with her niece, Shruthi Caro, . DC IMM delivered, explained, signed by the patient, and placed in chart. Signed form also left with the patient. CM will continue to follow and will assist as needed with dc plans/needs. DCP REVIEW SUMMARY ANTICIPATED D/C DATE: 11/07/2020 EXPECTED LOS : 4 CASE STATUS: DCP Initiated INITIAL REVIEW: 11/03/2020 INITIAL REVIEWER: Alejandro Davidson FINAL DISCHARGE DISPOSITION: : FINAL REVIEWER: FINAL REVIEW DATE: DCP Focus Questions & Answers DCP Evaluation QUESTION: ANSWER Family / Caregiver's ability to cope with chronic illness: : a. Adequate (ability to meet patient's medical needs, ensures patient attends medical appts.) Patient gives permission to discuss discharge plans with: (name, relationship and number) : sister, Lizette Caro, Patient's ability to cope with chronic illness : d. No chronic illness Patient's current cognitive status: : *Oriented to person, place, situation, time and present Patient and/or caregiver agree upon recommended discharge plan? : Yes Physical Status: : Independent with ADL's Family / Caregiver's ability to cope with chronic illness: : a. Adequate (ability to meet patient's medical needs, ensures patient attends medical appts.) Functional screen assessment: : Basic needs can adequately be met by self Does the patient have the ability to pay for or attain post discharge needs / services? : Yes Living Arrangements: : Home Alone with Support Is there a likelihood that the patient will require additional services to return to the preadmission environment? : No Equipment needed for post hospitalization: : None Baseline cognitive status: : *Oriented to person, place, situation, time and present Patient with capacity for self-care or can be cared for in same environment as prior to hospitalization? : Yes Physical environment modification needed / anticipated for discharge: : No Medication Management: : Patient states can afford medications Medication Management: : Patient states can read and understand medication labels Pharmacy name(s): : [facility] [place] Does Patient have transportation to get home and to follow-up medical appointments when discharged from the hospital? : Yes Would patient like to participate in any Care Coordination programs (if applicable): : Not applicable Does the patient have electricity at home? : Yes Does the patient have running water in their house? : Yes Equipment in use: : Cane - Single Leg Equipment in use: : Walker - Rolling Other Equipment comments: : Oxygen Equipment agency name and contact information: : [facility] Mental health screen: : No mental health history DCP Re-evaluation QUESTION: ANSWER Would patient like to participate in any Care Coordination programs (if applicable): : Not applicable PATIENT: HANNA PIERCE ENCOUNTER: [id number] MEDICAL RECORD#: [id number] ADMISSION DATE: 11/03/2020 DISCHARGE DATE: 11/07/2020 ATTENDING MD: ANGEL ABARCA : AGE: 70 MARITAL STATUS: S DC PLAN ID: [id number] FACILITY: [facility] PRINTED ON: 11/09/20 10:33 CT All edits/amendments must be made on the electronic document DICTATION DATE: 11/09/20 1033 TELEGRAPHIC TYPEWRITER OPERATOR: YENI 11/09/20 1033 RPT#: [id number] DC DATE:11/07/20 STATUS: DIS IN [facility] [address] [place] [address] END OF REPORT
== END 2020-11-07 18:00 | disposition home health service (06) | DRG 689 ==
LOC: D.ER 11:41 → D.MS 16:27
PROVIDERS: Family Medicine; ADMIT Emergency Medicine; ATTEND Emergency Medicine
DX: N30.00 Acute cystitis without hematuria (principal); J18.9 Pneumonia, unspecified organism; I50.22 Chronic systolic (congestive) heart failure; G62.9 Polyneuropathy, unspecified; J44.9 Chronic obstructive pulmonary disease, unspecified; K21.9 Gastro-esophageal reflux disease without esophagitis; R56.9 Unspecified convulsions; I48.91 Unspecified atrial fibrillation; I27.20 Pulmonary hypertension, unspecified; F41.8 Other specified anxiety disorders; F17.200 Nicotine dependence, unspecified, uncomplicated; I11.0 Hypertensive heart disease with heart failure